=== PATIENT | female | born 1935 | race Caucasian/White ===

== ENCOUNTER 2017-08-28 08:20 | Outpatient (CLI) | payer MEDICARE, BC ==
[2017-08-28] MEDS ORDERED: Iopamidol 370 76% 100 ML VIAL ONE (09:00)
--- NOTE | 2017-08-28 14:30 | CT ---
CT OF ABDOMEN PERFORMED WITH AND WITHOUT CONTRAST ENHANCEMENT: History: Abnormal liver function test. Elevated liver enzymes. Contrast: 99 cc Isovue 370 Comparison: None. FINDINGS: Lung bases show chronic appearing interstitial lung changes with areas of airtrapping. The liver is within normal limits of size. It shows some surface nodularity. It measures 13.2 cm in s ize. The spleen is within normal limits. The pancreas region as well as gallbladder appear unremarkab le. Right and left adrenal glands and right and left kidneys are normal in size. Small hypodensities invo lving the kidneys are most likely small cysts. There is no significant periaortic or mesenteric adeno patricia. No bowel wall abnormalities. There are arthritic changes of the spine. IMPRESSION: 1. Chronic lung change. 2. Slightly nodular appearance to the surface of the liver suggesting that there is some underlying c irrhotic change. There is no evidence of any mass. POS: [facility]
== END 2017-08-28 08:21 | disposition home or self-care (01) ==
LOC: SCSCT 08:20
PROVIDERS: ATTEND Family Medicine
DX: R74.8 Abnormal levels of other serum enzymes (principal)
CPT/HCPCS: 74170; 82565

== ENCOUNTER 2017-10-23 18:20 | Observation (INO) | payer MEDICARE, BC ==
[2017-10-23 18:51] LABS: #Basophils 0.1 thou/uL (0.0-0.2); #Eosinphils 0.3 thou/uL (0.0-0.7); #Lymphocytes 1.3 thou/uL (1.20-3.40); #Monocytes 0.7 thou/uL (0.11-0.59); %Basophils 1.3 % (0.0-1.0); %Eosinophils 4.4 % (0.0-10.0); %Lymphocytes 17.6 % (21.0-51.0); %Monocytes 9.4 % (0.0-10.0); %Neutrophils 67.4 % (42.0-75.0); Hemoglobin 13.2 g/dL (12.0-16.0); Mean Corpuscular HGB CONC 33.9 g/dL (32.0-36.0); Mean Corpuscular Hemoglobin 31.3 pg (27.0-31.0); Mean Corpuscular Volume 92.3 fl (81.0-99.0); Mean Platelet Volume 6.2 fL (7.4-10.4); Platelet Count 241 thou/uL (130-400); RBC Distribution Width 10.7 % (11.5-14.5); Red Blood Cell (RBC) Count 4.22 mill/uL (4.20-5.40); White Blood Cell (WBC) Count 7.4 thou/uL (4.8-10.8)
[2017-10-23 19:02] LABS: Base Excess-Venous -0.6 mmol/L (0 (+/- 2.5)); Bicarbonate (HCO3v) 22.3 mmol/L (1.0-85.0); CO2 Tension (PvCO2) 31.5 mmHg (41.0-51.0); Calcium, Ionized 0.92 mmol/L (1.12-1.32); Hemoglobin - Calc 14.7 g/dL (12.0-18.0); O2 Tension (PvO2) 50.5 mmHg (35.0-45.0); Potassium 5.1 mmol/L (3.4-4.7); T. Carbon Dioxide 23.3 mmol/L (1.0-85.0); pH (Venous) 7.459 (7.35-7.45); vO2 Saturation-calc 87.8 % (94-98)
[2017-10-23 19:06] LABS: Anion Gap 14 mmol/L (10-20); BUN (Urea Nitrogen) 12 mg/dL (9.8-20.1); Calc. Creatinine Clearance 0 mL/min (70-130); Calcium 8.8 mg/dL (7.8-10.44); Carbon Dioxide 20 mmol/L (23-31); Chloride 101 mmol/L (98-107); Estimated GFR-MDRD 69; Glucose 138 mg/dL (83-110); Potassium 4.6 mmol/L (3.5-5.1); Sodium 130 mmol/L (136-145)
[2017-10-23 19:10] LABS: CKMB 1.2 ng/mL (0-6.6); Troponin I 0.025 ng/mL (< 0.028)
[2017-10-23] MEDS ORDERED: Nitroglycerin 2% Ointment 1 INCH/1 GM Packet ONE (20:06)
--- NOTE | 2017-10-23 20:32 | RAD ---
PORTABLE CHEST: 10/23/2017 PROVIDED CLINICAL HISTORY: Dyspnea. COMPARISON: 07/01/2016 FINDINGS: The cardiac and mediastinal silhouette are unchanged in appearance. Vascular calcification involves the aortic arch. Nonspecific prominence of the pulmonary interstitium, diffusely, is similar to the prior study. There is no focal consolidation, pleural fluid, or pneumothorax apparent. IMPRESSION: No evidence for an acute cardiopulmonary process. POS: [facility]
[2017-10-23 22:05] LABS: Troponin I 0.017 ng/mL (< 0.028)
[2017-10-23 23:12] VITALS: BMI 25.0
[2017-10-24 01:29] LABS: ALT (SGPT) 28 U/L (8-55); AST (SGOT) 34 U/L (5-34); Albumin 3.4 g/dL (3.4-4.8); Alkaline Phosphatase 106 U/L (40-150); Bilirubin, Direct 0.2 mg/dL (0.1-0.3); Bilirubin, Total 0.3 mg/dL (0.2-1.2); Protein, Total 8.7 g/dL (6.0-8.3)
[2017-10-24 01:39] LABS: Troponin I Less than 0.010 ng/mL (< 0.028)
[2017-10-24] MEDS ORDERED: Senokot 8.6 MG TAB PO PRN (04:16)
[2017-10-24] MEDS ORDERED: Calcium Carbonate 500 MG ChewTAB PO PRN (04:16)
[2017-10-24] MEDS ORDERED: Acetaminophen 325 MG TAB PO PRN (04:16)
[2017-10-24] MEDS ORDERED: Nitroglycerin 0.4 MG TAB (25 Tab Bottle) PO PRN (04:16)
--- NOTE | 2017-10-24 04:57 | HP ---
DATE OF ADMISSION: 10/23/2017 PRIMARY CARE PHYSICIAN: Iliana Madrid M.D. PRIMARY MUSIC HISTORIAN: Jimy Patel M.D. CHIEF COMPLAINT: Chest discomfort with shortness of breath of one week duration. HISTORY OF PRESENT ILLNESS: The patient is an 82-year-old female with coronary artery disease, status post stent placement, autoimmune hepatitis, hyperlipidemia, and atrial fibrillation who presented to the emergency room with shortness of breath and chest discomfort that has been ongoing for last 1 week or so. Her shortness of breath and chest discomfort got worse today for which she presented to the emergency room. The chest discomfort was substernal , 4/10, without any aggravating or relieving factor. It was associated with shortness of breath mainly on mild to moderate exertion. She also had some wheezing. No cough, palpitations, lightheadedness, dizziness or syncope reported. At times, she gets lightheaded, especially when she gets up too fast. In the emergency room, her EKG showed atrial fibrillation with heart rate of 102. Her chest x-ray was negative for infiltrate. She received DuoNebs, nitro patch with improvement in her symptoms. PAST MEDICAL HISTORY: 1. Coronary artery disease, status post stent placement and MD in the past. 2. Sjogren's syndrome. 3. Atrial fibrillation. 4. Depression. 5. Hypothyroidism. 6. Hyperlipidemia. 7. Autoimmune hepatitis. The patient is scheduled for liver biopsy next week or so. Xarelto is on hold. PAST SURGICAL HISTORY: 1. Right foot surgery. 2. Cardioversion in 2017. 3. Tonsillectomy. 4. Eye surgery. ALLERGIES: The patient is allergic to PENICILLIN and CODEINE. HOME MEDICATIONS: The patient is unable to recall any of her home medications. She is a poor historian. She stated that Xarelto is on hold for liver biopsy. She also stated that Dr. Patel held one of her medication that can cause abnormal liver function tests. SOCIAL HISTORY: The patient currently lives at home with her family. She makes her own decisions with the help of her family. She is a former smoker. She drinks alcohol socially. She is . She is retired. FAMILY HISTORY: Mother with diabetes, father with heart disease. REVIEW OF SYSTEMS: The following complete review of systems was negative, unless otherwise mentioned in the HPI or below: Constitutional: Weight loss or gain, ability to conduct usual activities. Skin: Rash, itching. Eyes: Double vision, pain. ENT/Mouth: Nose bleeding, neck stiffness, pain, tenderness. Cardiovascular: Palpitations, dyspnea on exertion, orthopnea. Respiratory: Shortness of breath, wheezing, cough, hemoptysis, fever or night sweats. Gastrointestinal: Poor appetite, abdominal pain, heartburn, nausea, vomiting, constipation, or diarrhea. Genitourinary: Urgency, frequency, dysuria, nocturia. Musculoskeletal: Pain, swelling. Neurologic/Psychiatric: Anxiety, depression. Allergy/Immunologic: Skin rash, bleeding tendency. PHYSICAL EXAMINATION: VITAL SIGNS: In the emergency room showed temperature 98.2, respirations 20, pulse rate of 116, blood pressure 131/83 with O2 saturation 97% on room air. GENERAL: An 82-year-old female in no apparent distress. Shortness of breath has improved. She is saturating 93% on room air. HEENT: Head atraumatic, normocephalic. Sclerae are anicteric. Moist mucous membrane, no oral lesion. NECK: Supple, no JVD, no carotid bruit. LUNGS: Showed scattered rhonchi. No significant wheezing or rales. Lungs were symmetrical. No significant accessory muscle use. HEART: S1, S2 present. Irregularly irregular, 2/6 systolic murmur over the aortic area. No rubs or gallops appreciated. ABDOMEN: Soft, nontender, bowel sounds present, no rebound or guarding. EXTREMITIES: No edema or calf tenderness. NEUROLOGIC: Grossly nonfocal, moves all four extremities. PSYCHIATRY: Alert, awake, oriented x3. SKIN: Warm and dry. LYMPH NODES: No palpable lymph nodes in the neck. PERIPHERAL VASCULAR: Radial pulses palpable bilaterally. MUSCULOSKELETAL: No joint swelling or tenderness. LABORATORY FINDINGS: CBC showed WBC 7.4 with hemoglobin 13.2, platelet count of 241. D-dimer was 0.55. Chemistries showed sodium of 130, potassium 4.6, chloride 101, bicarb 20, BUN 12, creatinine 0.80, glucose of 138. Troponins were normal. BNP was 107. Chest x-ray by my review was negative for infiltrate. EKG by my review showed atrial fibrillation with heart rate of 102. IMPRESSION: 1. Shortness of breath with chest discomfort of unclear etiology. Rule out acute coronary syndrome. 2. Abnormal D-dimer. Patient is already on Xarelto. It is unclear when she discontinued Xarelto. 3. Chronic atrial fibrillation. Per patient report, anticoagulation is currently on hold due to schedule liver biopsy. She is not able to recall whether she is still on flecainide. 4. Hyperlipidemia. 5. Hypothyroidism. 6. Autoimmune hepatitis, followed by Dr. Mckinley as well as Rheumatology, Dr. Nj. 7. Coronary artery disease, status post myocardial infarction with stent placement. 8. Depression without any suicidal ideation. 9. Chronic kidney disease stage 2. 10. Chronic hyponatremia. PLAN: The patient will be monitored in the telemetry unit as observation. Cardiology will be consulted. Serial troponins are negative so far. We will resume home medications once confirmed. We will resume low-dose aspirin which she takes on a daily basis per patient report. We will check orthostatic vitals. We will assess her for home oxygen. We will also add p.r.n. nebulizer treatment. The patient will be kept n.p.o. MTDD
[2017-10-24] MEDS ORDERED: Sodium Chloride 0.9% 1,000 ML IV SCH (07:00)
[2017-10-24 07:22] LABS: Anion Gap 8 mmol/L (10-20); BUN (Urea Nitrogen) 10 mg/dL (9.8-20.1); Calc. Creatinine Clearance 64 mL/min (70-130); Calcium 8.8 mg/dL (7.8-10.44); Carbon Dioxide 26 mmol/L (23-31); Chloride 103 mmol/L (98-107); Estimated GFR-MDRD 75; Glucose 118 mg/dL (83-110); Magnesium 1.9 mg/dL (1.6-2.6); Potassium 3.8 mmol/L (3.5-5.1); Sodium 133 mmol/L (136-145)
[2017-10-24] MEDS ORDERED: Aspirin 81 mg Enteric Coated Tablet PO SCH (09:00)
[2017-10-24] MEDS ORDERED: Furosemide 20 MG/2 ML VIAL SLOW IVP SCH (12:00)
--- NOTE | 2017-10-24 13:11 | CON ---
DATE OF CONSULTATION: 10/24/2017 REASON FOR CONSULTATION: Chest pain and shortness of breath. HISTORY OF PRESENT ILLNESS: Ms. Lacy is a very pleasant 82-year-old white female very well known to myself who comes to the hospital for lightheadedness and shortness of breath. She has a history of coronary artery disease. She had a stent placed in [facility] in [place] in 2005. She present ed to [facility] about 6 months ago with chest pain. She had a heart catheterization which showed paten t stent and just mild coronary artery disease. She started seeing me a little bit before that for an episode of atrial fibrillation. She was found to have a new diagnosis of this. She was started on Eliquis and flecainide. She underwent ARIAN cardioversion, which successfully converted her to sinus b radycardia; however, eventually she went back into atrial fibrillation, so the flecainide was stopped . She was kept on Xarelto instead of Eliquis since she had a reaction to the Eliquis, allergic react ion and she has done well since. She has been rate controlled without issues. She stated that she w as at home 2 days ago and stood up very quickly, felt lightheaded, so she thought this was related to just her getting up too quickly, so she decided she was not going to do that anymore. She also noti german that she started to get a little more short of breath. She would get midsternal chest pain which she would take a deep breath and she will start coughing. Otherwise, she states that she feels bett er now. The only thing we have done for her was given her nebs. She is not aware of being diagnosed with asthma, but she does feel an improvement after nebs were given. Currently, she is chest pain f ree. She continues to just admit for chest pain when she takes deep breath and actually when I asked her to take deep breath, she just starts coughing. She also has a scheduled liver biopsy next week as she is being evaluated for autoimmune hepatitis. This was all in the setting of her LFTs started to go up recently, so we stopped the statin drug, not because LFTs were too high, but because they we re up trending and we did not want these to be part of the mix in this setting. She has not had them for at least last 2 months and her LFTs are back to normal. PAST MEDICAL HISTORY: 1. Coronary artery disease, status post stent placement in 2005. 2. Sjogren's syndrome. 3. Atrial fibrillation, chronic, rate controlled. 4. Depression. 5. Hypothyroidism. 6. Hyperlipidemia. 7. Autoimmune hepatitis, being worked up. PAST SURGICAL HISTORY: 1. Right foot surgery. 2. Cardioversion, last year. 3. Tonsillectomy. 4. Eye surgery. 5. Stent placement as well. ALLERGIES: CODEINE and PENICILLIN. OUTPATIENT MEDICATIONS: 1. Atorvastatin 20 mg every day. 2. Aspirin 81 a day. 3. Levothyroxine 100 mcg a day. 4. Xarelto 20 mg at bedtime. 5. Toprol-XL 12.5 mg a day. 6. Lasix 20 mg a day, Lasix was discontinued on last office visit in August. SOCIAL HISTORY: No alcohol, tobacco or drugs. She is . FAMILY HISTORY: Noncontributory. REVIEW OF SYSTEMS: A 12 point review of systems was done and is all negative unless stated in the hi story of present illness. PHYSICAL EXAMINATION: VITAL SIGNS: Temperature 98.0, pulse 87, respiratory rate 16, satting 92% on room air, blood pressur e 129/84. GENERAL: Awake, alert, oriented x3, in no distress. HEENT: Normocephalic, atraumatic. NECK: Supple. LUNGS: Clear. CARDIOVASCULAR: S1, S2, no S3 or S4. Irregularly irregular heart rhythm in 70s. LUNGS: Have coarse breath sounds with mild expiratory wheezes. ABDOMEN: Soft with positive bowel sounds. EXTREMITIES: No edema. SKIN: Warm and dry. LABORATORY DATA: Laboratory work was reviewed. Sodium 133, potassium 3.8, chloride 103, carbon diox cedric 26, anion gap of 8, BUN of 10, creatinine 0.7, GFR of 75, glucose of 118, calcium 8.8, magnesium 1.9. LFTs were normal. Total bilirubin was normal. Troponin has been negative x3, albumin of 3.4. CBC was unremarkable. Coags; D-dimer was a little bit elevated at 0.55. ASSESSMENT AND PLAN: 1. Chest pain: Only has a little bit of discomfort when she takes a deep breath. We will get an ec hocardiogram to make sure her pericardial sac is intact. I doubt that this is related to her heart i n regards to an ACS that she has completed negative enzymes since she had an unremarkable heart joshua terization about 6-7 months ago. If her echocardiogram is unremarkable, she can be discharged home a nytime from the cardiac perspective. 2. Increased interstitial markings on chest x-ray. She will probably need an outpatient evaluation by Pulmonary. We will set this up as an outpatient. 3. Shortness of breath: We will give her 1 dose of IV Lasix since she may have a little bit of cavanaugh tolic heart failure; however, I do not think this is the biggest issue. Thank you for letting us to participate in the care of your patient. We will follow.
--- NOTE | 2017-10-24 15:00 | PDOC.PN ---
- Subjective Encounter Start Date: 10/24/17 Encounter Start Time: 14:58 Ms. Lacy was seen today in follow-up. She says she is breathing better today. and the pain she had is resolving. - Objective Resuscitation Status: Resuscitation Status FULL:Full Resuscitation MAR Reviewed: Yes Vital Signs & Weight: Vital Signs (12 hours) Temp Pulse Resp BP BP BP BP 10/24/17 13:32 85 14 10/24/17 11:42 98.0 F 87 16 121/84 10/24/17 09:34 81 16 10/24/17 07:43 98.5 F 86 14 10/24/17 07:19 98.4 F 89 16 123/66 139/60 110/58 L 10/24/17 05:55 10/24/17 05:53 86 14 10/24/17 04:10 98.5 F 111 H 18 155/104 H Pulse Ox 10/24/17 13:32 95 10/24/17 11:42 92 L 10/24/17 09:34 96 10/24/17 07:43 10/24/17 07:19 94 L 10/24/17 05:55 98 10/24/17 05:53 97 10/24/17 04:10 95 Weight Weight 150 lb 1.6 oz I&O: 10/23/17 10/24/17 10/25/17 06:59 06:59 06:59 Intake Total 720 585 Output Total 1300 400 Balance -580 185 Result Diagrams: 10/23/17 18:45 10/24/17 06:40 Phys Exam - Physical Examination HEENT: PERRLA Respiratory: no wheezing, no rales, no rhonchi, clear to auscultation bilateral Cardiovascular: RRR, no significant murmur, no rub Gastrointestinal: soft, non-tender, no distention, positive bowel sounds Musculoskeletal: no edema Dx/Plan (1) Chest pain Code(s): R07.9 - CHEST PAIN, UNSPECIFIED Status: Acute (2) Atrial fibrillation Code(s): I48.91 - UNSPECIFIED ATRIAL FIBRILLATION Status: Acute (3) Coronary artery disease Code(s): I25.10 - ATHSCL HEART DISEASE OF [place] CORONARY ARTERY W/O ANG PCTRS Status: Acute - Plan * Chest pain- she has been evaluated by Dr. Patel, and he is recommending an Echo * AFIB- her rate is controlled * If her Echo is negative, than likely home this afternoon.
[2017-10-24 16:16] VITALS: BP 104/59; TEMP 98.6
--- NOTE | 2017-10-24 20:31 | EKG ---
Test Reason : Blood Pressure : / mmHG Vent. Rate : 094 BPM Atrial Rate : 113 BPM P-R Int : 000 ms QRS Dur : 082 ms QT Int : 382 ms P-R-T Axes : 000 015 081 degrees QTc Int : 477 ms Atrial fibrillation with premature ventricular or aberrantly conducted complexes Abnormal ECG When compared with ECG of 01-JUL-2016 01:33, No significant change was found Confirmed by YESSI CALHOUN, SYudelka ([id number]) on 10/24/2017 8:31:27 PM Referred By: CARMELA Confirmed By:DR. Jony DICKSON MD
--- NOTE | 2017-10-25 03:42 | DIS ---
DATE OF ADMISSION: 10/25/2017 DATE OF DISCHARGE: 10/25/2017 PRIMARY CARE PHYSICIAN: Dr. Iliana Madrid. DISCHARGE DISPOSITION: Home. PRIMARY DISCHARGE DIAGNOSES: 1. Chest pain, probable noncardiac etiology. 2. History of coronary artery disease. 3. Sjogren syndrome. 4. Permanent atrial fibrillation. 5. Depression. 6. Hypothyroidism. 7. Hyperlipidemia. 8. History of autoimmune hepatitis. DISCHARGE MEDICATIONS: These are the same as her admission medications and include Xarelto 20 mg at bedtime, Toprol-XL 12.5 mg daily, levothyroxine 100 mcg p.o. daily, Lasix 20 mg daily, flecainide 50 mg daily, donepezil 5 mg daily, atorvastatin 20 mg at bedtime, and aspirin 81 mg a day. PROCEDURES DONE DURING ADMISSION: The patient had an echocardiogram and the ejection fraction was vi sualized at 60%-65%. There was no evidence of any pericardial effusion, left ventricular and right v entricular size and function were normal. CODE STATUS: FULL CODE. ALLERGIES: PENICILLINS. HOSPITAL COURSE: Ms. Lacy is a pleasant 82-year-old female who presented to the emergency room with complaints of chest discomfort and shortness of breath. She had been having these symptoms off and on for about a week. She did admit that the pain seemed to be worse with inspiration. Given her his tory of coronary artery disease, she was placed in observation and ruled out. Her dna analyst, Dr. Patel was consulted. He noted that the patient had a recent cardiac catheterization in April of last year, which was negative for any flow limiting disease. He suspected that her symptoms could be more viral in origin and order an echocardiogram to rule out any significant pericardial effusion an d this was negative. Her symptoms are improving by the following day and given that there were no si gnificant findings on the echo. She is being discharged home. We will continue her same medications and we will have close outpatient followup.
== END 2017-10-24 18:43 | disposition home or self-care (01) ==
LOC: SCSER 18:20 → 2SW 20:20
PROVIDERS: ADMIT Internal Medicine Infectious Disease; ATTEND Internal Medicine Infectious Disease
DX: R07.89 Other chest pain (principal); I25.10 Atherosclerotic heart disease of native coronary artery without angina pectoris; Z95.5 Presence of coronary angioplasty implant and graft; E78.5 Hyperlipidemia, unspecified; K75.4 Autoimmune hepatitis; I25.2 Old myocardial infarction; F32.9 Major depressive disorder, single episode, unspecified; E03.9 Hypothyroidism, unspecified; M35.00 Sjogren syndrome, unspecified; I48.2 Chronic atrial fibrillation; N18.2 Chronic kidney disease, stage 2 (mild); Z87.891 Personal history of nicotine dependence; Z88.0 Allergy status to penicillin; Z88.5 Allergy status to narcotic agent; Z91.018 Allergy to other foods; Z79.01 Long term (current) use of anticoagulants; Z79.82 Long term (current) use of aspirin; Z79.899 Other long term (current) drug therapy
CPT/HCPCS: 71045; 80048 ×2; 80076; 82330; 82435; 82553; 82803; 83735; 83880; 84132; 84295; 84484 ×3; 85014; 85025; 85379; 93005 ×2; 93306; 94640 ×2; 94760; 96361; 96374; 97139; 99285; G0378; 36415; 93010; J1940; J7620

== ENCOUNTER 2017-10-30 08:00 | Day surgery (SDC) | payer MEDICARE, BC ==
[2017-10-29 15:03] VITALS: BMI 24.1
[2017-10-30 08:28] LABS: INR-International Normal Ratio 1.1; PTT 31.2 SEC (22.9-36.1); Prothrombin Time 14.3 SEC (12.0-14.7)
[2017-10-30] MEDS ORDERED: Fentanyl 100 MCG/2 ML VIAL ONE (09:05)
[2017-10-30] MEDS ORDERED: Midazolam HCl 2 mg/2 ml Vial ONE (09:05)
[2017-10-30] MEDS ORDERED: Sodium Bicarbonate 2.5 MEQ/5 ML VIAL ONE (09:06)
[2017-10-30 09:59] VITALS: BP 127/91; TEMP 97
--- NOTE | 2017-10-30 12:09 | ULT ---
ULTRASOUND GUIDED LIVER BIOPSY: HISTORY: Abnormal liver function tests. COMPARISON: CT abdomen from August 2017. FINDINGS: The patient was brought to the ultrasound suite. All questions were answered. The patient's upper abdomen was prepped and draped in the normal sterile fashion. Informed consent w as obtained. A time out was performed. Using ultrasound guidance, a total of 6 mL of Lidocaine was instilled into the superficial and deep s oft tissues. A small dermatotomy was made, after adequate anesthesia. Using an 18 gauge BioPince ne edle and a 17 gauge introducer, a total of two 22 mm cores were obtained. The patient tolerated the procedure well. No complications. IMPRESSION: Technically successful ultrasound guided liver biopsy. POS: [facility]
== END 2017-10-30 12:00 | disposition home or self-care (01) ==
LOC: ULT 08:00
PROVIDERS: ATTEND Internal Medicine
PROC: 0FB23ZX Excision of Left Lobe Liver, Percutaneous Approach, Diagnostic (ICD-10-PCS; principal; 2017-10-30)
DX: K73.9 Chronic hepatitis, unspecified (principal); I48.91 Unspecified atrial fibrillation; I50.9 Heart failure, unspecified; I25.2 Old myocardial infarction; E07.9 Disorder of thyroid, unspecified; Z88.0 Allergy status to penicillin; Z79.01 Long term (current) use of anticoagulants; Z79.899 Other long term (current) drug therapy; Z79.82 Long term (current) use of aspirin
CPT/HCPCS: 36415; 47000; 76942; 85610; 85730; 88307; J2250; J3010

== ENCOUNTER 2019-05-30 14:33 | Inpatient (IN) | payer MEDICARE, BC ==
--- NOTE | 2019-05-30 15:10 | RAD ---
EXAM: Chest 2 views: HISTORY: Shortness of breath COMPARISON: 09/07/2016 FINDINGS: There is a normal-sized cardiomediastinal silhouette. Atherosclerotic calcifications are seen in the aorta. Increased interstitial markings are seen. There is no evidence of consolidation, mass, or pleural effusion. The bones are unremarkable. IMPRESSION: No evidence of acute cardiopulmonary disease
[2019-05-30 15:59] LABS: #Eosinphils 0.2 thou/uL (0.0-0.7); #Lymphocytes 1.5 thou/uL (1.20-3.40); #Monocytes 0.6 thou/uL (0.11-0.59); #Neutrophils 4.2 thou/uL (1.40-6.50); %Basophils 0.5 % (0.0-1.0); %Eosinophils 3.6 % (0.0-10.0); %Lymphocytes 22.4 % (21.0-51.0); %Monocytes 9.3 % (0.0-10.0); %Neutrophils 64.3 % (42.0-75.0); Hemoglobin 6.4 g/dL (12.0-16.0); Mean Corpuscular HGB CONC 31.5 g/dL (32.0-36.0); Mean Corpuscular Hemoglobin 23.8 pg (27.0-31.0); Mean Corpuscular Volume 75.6 fL (78.0-98.0); Mean Platelet Volume 7.3 fL (7.4-10.4); Platelet Count 305 thou/uL (130-400); RBC Distribution Width 17.1 % (11.5-14.5); Red Blood Cell (RBC) Count 2.66 mill/uL (4.20-5.40); White Blood Cell (WBC) Count 6.5 thou/uL (4.8-10.8)
[2019-05-30 16:18] LABS: ALT (SGPT) Less than 7 U/L (8-55); AST (SGOT) 12 U/L (5-34); Albumin 3.9 g/dL (3.4-4.8); Alkaline Phosphatase 133 U/L (40-110); Anion Gap 12 mmol/L (10-20); BUN (Urea Nitrogen) 10 mg/dL (9.8-20.1); Bilirubin, Total 0.4 mg/dL (0.2-1.2); Calc. Creatinine Clearance 0 mL/min (70-130); Calcium 9.1 mg/dL (7.8-10.44); Carbon Dioxide 24 mmol/L (23-31); Chloride 104 mmol/L (98-107); Estimated GFR-MDRD 66; Globulin 3.5 g/dL (2.4-3.5); Glucose 116 mg/dL (83-110); Potassium 3.7 mmol/L (3.5-5.1); Protein, Total 7.4 g/dL (6.0-8.3); Sodium 136 mmol/L (136-145)
[2019-05-30] MEDS ORDERED: Pantoprazole 40 MG VIAL ONE (16:26)
--- NOTE | 2019-05-30 18:21 | PDOC.HHP ---
Hospitalist HPI - History of Present Illness SOB, Anemia History of Present Illness: Ms. Lacy is an 84 y/o lady with PMH of afib on anticoagulation, CAD s/p stent over 20 years ago, who presents to the ED today for shortness of breath and fatigue. Her Hb was reportedly 6.4 in the ED. She states for the past month has been progressively more short of breath and faigued. States that especially in the past week has started feeling more tired. She lives in an assisted living facility and reportedly has been unable to walk to the cafeteria for meals. She has not noticed in black coloration in her stools. Reports no history of bleeding. She is on Xarelto for atrial fibrillation. She denies any other bleeding symptoms including epistaxis or hematuria. Denies chest pain. Hospitalist ROS - Review of Systems Constitutional: reports: weakness. denies: fever, chills, sweats, malaise, other Eyes: denies: pain, vision change, conjunctivae inflammation, eyelid inflammation, redness, other ENT: denies: ear pain, ear discharge, nose pain, nose discharge, nose congestion , mouth pain, mouth swelling, throat pain, throat swelling, other Respiratory: denies: cough, dry, shortness of breath, hemoptysis, SOB with excertion, pleuritic pain, sputum, wheezing, other Cardiovascular: denies: chest pain, palpitations, orthopnea, paroxysmal noc. dyspnea, edema, light headedness, other Gastrointestinal: denies: nausea, vomiting, abdominal pain, diarrhea, constipation, melena, hematochezia, other Genitourinary: denies: dysuria, frequency, incontinence, hematuria, retention, other Musculoskeletal: denies: neck pain, shoulder pain, arm pain, back pain, hand pain, leg pain, foot pain, other Skin: denies: rash, lesions, anish, bruising, other Neurological: denies: weakness, numbness, incoordination, change in speech, confusion, seizures, other - Medication Medications: Xarelto Sat May 30, 2019 14:46 TUNDE Lacy Morgan TABLET : Strength - 10 mg : ORAL Patient Dose: 20 mg Oral once a day. levothyroxine oral Sat May 30, 2019 14:46 TUNDE Lacy Morgan TABLET : Strength - 100 mcg : ORAL Patient Dose: 112 mcg Oral once a day. Aspir-81 Sat May 30, 2019 14:48 TUNDE Lacy Morgan TABLET, DELAYED RELEASE (ENTERIC COATED) : Strength - 81 mg : ORAL Patient Dose: 1 tab(s) Oral once a day. Lasix oral Sat May 30, 2019 14:48 TUNDE Lacy Morgan TABLET : Strength - 20 mg : ORAL Patient Dose: 20 mg Oral once a day (in the morning). azaTHIOprine Sat May 30, 2019 14:48 TUNDE Lacy Morgan tablet : Strength - 50 mg : ORAL Patient Dose: 50 mg Oral once a day. metoprolol succinate Sat May 30, 2019 14:49 TUNDE Lacy Morgan tablet extended release 24 hr : Strength - 25 mg : ORAL Patient Dose: 25 mg Oral once a day. Hospitalist History - Past Medical History Cardiac: reports: AFIB, CAD Pulmonary: reports: no pertinent history [employer]: reports: no pertinent history Gastrointestinal: reports: no pertinent history Heme/Onc: reports: no pertinent history Hepatobiliary: reports: no pertinent history Psych: reports: no pertinent history Musculoskeletal: reports: no pertinent history Rheumatologic: reports: no pertinent history Infectious Disease: reports: no pertinent history ENT: reports: no pertinent history Renal/: reports: no pertinent history Endocrine: reports: no pertinent history Dermatology: reports: no pertinent history - Past Surgical History Past Surgical History: reports: Other (Stent placement for CAD over 20 years ago ) - Family History Family History: reports: no pertinent history - Social History Smoking Status: Never smoker Alcohol: reports: None Drugs: reports: none Living Situation: Other (Assisted living facility) Activity level: independent ambulation - Exam General Appearance: NAD, awake alert, ill appearing General - other findings: pale in appearance Eye: PERRL, anicteric sclera Eye - other findings: Pallor noted ENT: normocephalic atraumatic, no oropharyngeal lesions, moist mucosa Neck: supple, symmetric, no JVD, no thyromegaly, no lymphadenopathy, no carotid bruit Heart: RRR, no murmur, no gallops, no rubs, normal peripheral pulses Respiratory: CTAB, no wheezes, no rales, no ronchi, normal chest expansion, no tachypnea, normal percussion Gastrointestinal: soft, non-tender, non-distended, normal bowel sounds, no palpable masses, no hepatomegaly, no splenomegaly, no bruit Extremities: no cyanosis, no clubbing, no edema Skin: normal turgor, no lesions, no rashes Neurological: cranial nerve grossly intact, normal sensation to touch, no weakness, no focal deficits, no new deficit Musculoskeletal: normal tone, normal strength, no muscle wasting Psychiatric: normal affect, normal behavior, A&O x 3 Hospitalist Results - Labs Result Diagrams: 05/30/19 15:38 05/30/19 15:38 Lab results: WBC 6.5 thou/uL (4.8-10.8) 05/30/19 15:38 Hgb 6.4 g/dL (12.0-16.0) L 05/30/19 15:38 Hct 20.2 % (36.0-47.0) L 05/30/19 15:38 MCV 75.6 fL (78.0-98.0) L 05/30/19 15:38 Plt Count 305 thou/uL (130-400) 05/30/19 15:38 Neutrophils % 64.3 % (42.0-75.0) 05/30/19 15:38 Sodium 136 mmol/L (136-145) 05/30/19 15:38 Potassium 3.7 mmol/L (3.5-5.1) 05/30/19 15:38 Chloride 104 mmol/L (98-107) 05/30/19 15:38 Carbon Dioxide 24 mmol/L (23-31) 05/30/19 15:38 BUN 10 mg/dL (9.8-20.1) 05/30/19 15:38 Creatinine 0.83 mg/dL (0.6-1.1) 05/30/19 15:38 Glucose 116 mg/dL (83-110) H 05/30/19 15:38 Calcium 9.1 mg/dL (7.8-10.44) 05/30/19 15:38 Total Bilirubin 0.4 mg/dL (0.2-1.2) 05/30/19 15:38 AST 12 U/L (5-34) 05/30/19 15:38 ALT Less than 7 U/L (8-55) L 05/30/19 15:38 Alkaline Phosphatase 133 U/L (40-110) H 05/30/19 15:38 Troponin I Less than 0.010 ng/mL (< 0.028) 05/30/19 15:38 B-Natriuretic Peptide 185.1 pg/mL (0-100) H 05/30/19 15:38 Serum Total Protein 7.4 g/dL (6.0-8.3) 05/30/19 15:38 Albumin 3.9 g/dL (3.4-4.8) 05/30/19 15:38 Additional comment: VITAL SIGNS Sat May 30, 2019 16:45 TUNDE Goldman, [facility] BP: 114/76, Pulse: 99, Resp: 22, Temp: 98.4 (Oral), Pain: 0, O2 sat: 100 on (2L Oxygen), Time: 05/30/2019 16:45. Hospitalist H&P A/P - Problem (1) Symptomatic anemia Code(s): D64.9 - ANEMIA, UNSPECIFIED Status: Acute (2) Atrial fibrillation Code(s): I48.91 - UNSPECIFIED ATRIAL FIBRILLATION Status: Acute (3) Coronary artery disease Code(s): I25.10 - ATHSCL HEART DISEASE OF [place] CORONARY ARTERY W/O ANG PCTRS Status: Chronic (4) Chronic anticoagulation Code(s): Z79.01 - [facility] (CURRENT) USE OF ANTICOAGULANTS Status: Chronic - Plan Plan: Admit for observation Transfuse 2uPRBC. Monitor H & H after transfusion and in the AM Consult placed for GI, anemia microcytic, vitals compensated, likely slow occult GI bleeding until proven otherwise Protonix 40mg IV BID Hold Xarelto for now Clear liquid diet Medication to be reconciled in the AM DVt Prophylaxis: SCDs Code status: Full as discussed with patient ACP: Wants treatment, lives in assisted living, quite independent, daughter is surrogate decision maker provided she is unable to make decisions Disposition: Admit for investigation of anemia. Coordinate with GI.
[2019-05-30] MEDS ORDERED: Sodium Chloride 0.9% (PF) 10 ML VIAL FS PRN (18:38)
[2019-05-30 18:39] VITALS: BMI 26.0
[2019-05-31] MEDS: Pantoprazole 40 MG VIAL IVP SCH ×3 (00:08→20:51)
[2019-05-31 05:32] LABS: #Basophils 0.1 thou/uL (0.0-0.2); #Eosinphils 0.2 thou/uL (0.0-0.7); #Lymphocytes 1.9 thou/uL (1.20-3.40); #Monocytes 0.7 thou/uL (0.11-0.59); #Neutrophils 4.8 thou/uL (1.40-6.50); %Basophils 0.7 % (0.0-1.0); %Lymphocytes 25.3 % (21.0-51.0); %Monocytes 8.5 % (0.0-10.0); %Neutrophils 62.6 % (42.0-75.0); Hemoglobin 8.7 g/dL (12.0-16.0); Mean Corpuscular Hemoglobin 26.3 pg (27.0-31.0); Mean Corpuscular Volume 82.2 fL (78.0-98.0); Mean Platelet Volume 7.4 fL (7.4-10.4); Platelet Count 287 thou/uL (130-400); RBC Distribution Width 19.6 % (11.5-14.5); White Blood Cell (WBC) Count 7.7 thou/uL (4.8-10.8)
[2019-05-31] MEDS ORDERED: Prevnar 13-Val Conj/PF 0.5 ML SYRINGE IM ONE (09:00)
[2019-05-31 10:37] LABS: Iron 215 ug/dL (50-170); Iron Binding Capacity, Total 443 mcg/dL (265-497)
--- NOTE | 2019-05-31 14:34 | PDOC.HOSPP ---
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 Found to have Hb of 6.4 which is markedly low relative to 13.2 in november 2018. Transfused 2 PRBC with improvement. Admitted to having iron deficiency but denied hematemesis, melena or hematochezia - Objective Vital Signs & Weight: Vital Signs (12 hours) Temp Pulse Resp BP BP Pulse Ox 05/31/19 11:45 98.7 F 85 16 132/75 95 05/31/19 07:47 98.8 F 80 20 125/61 96 05/31/19 04:04 98.3 F 98 20 132/81 97 Weight Weight 156 lb 6.4 oz I&O: 05/30/19 05/31/19 06/01/19 06:59 06:59 06:59 Intake Total 1430 250 Output Total 900 Balance 1430 -650 Result Diagrams: 05/31/19 05:01 05/30/19 15:38 Hospitalist ROS - Medication Medications: Active Medications Generic Name Dose Route Start Last Admin Trade Name Freq PRN Reason Stop Dose Admin Pantoprazole Sodium 40 mg 05/30/19 21:00 05/31/19 09:57 Protonix IVP 40 mg BID ANNETTE Administration - Exam General Appearance: awake alert Eye: anicteric sclera ENT: normocephalic atraumatic, moist mucosa Neck: symmetric, no JVD Heart: irregular Respiratory: no wheezes, no ronchi, normal chest expansion, no tachypnea Gastrointestinal: soft, non-tender, non-distended, normal bowel sounds Extremities: no edema Neurological: cranial nerve grossly intact, no focal deficits Psychiatric: A&O x 3 Hosp A/P (1) Symptomatic anemia Code(s): D64.9 - ANEMIA, UNSPECIFIED Status: Acute (2) GI bleeding Code(s): K92.2 - GASTROINTESTINAL HEMORRHAGE, UNSPECIFIED Status: Suspected (3) Microcytic anemia Code(s): D50.9 - IRON DEFICIENCY ANEMIA, UNSPECIFIED Status: Acute (4) Autoimmune hepatitis Code(s): K75.4 - AUTOIMMUNE HEPATITIS Status: Acute (5) Hypothyroidism Code(s): E03.9 - HYPOTHYROIDISM, UNSPECIFIED Status: Acute (6) Atrial fibrillation Code(s): I48.91 - UNSPECIFIED ATRIAL FIBRILLATION Status: Acute (7) Chronic anticoagulation Code(s): Z79.01 - [employer]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 Continue PPI. hold ASA and xarelto Awaiting GI evaluation SCD for DVT prophylaxis Continue levothyroxine
[2019-06-01 08:14] LABS: Hemoglobin 8.5 g/dL (12.0-16.0)
[2019-06-01] MEDS: Pantoprazole 40 MG VIAL IVP SCH ×2 (09:15→22:18)
--- NOTE | 2019-06-01 16:13 | PDOC.HOSPP ---
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 Found to have Hb of 6.4 which is markedly low relative to 13.2 in november 2018. Transfused 2 PRBC with improvement. Admitted to known history of iron deficiency but denied hematemesis, melena or hematochezia. No new problem. - Objective Vital Signs & Weight: Vital Signs (12 hours) Temp Pulse Resp BP Pulse Ox 06/01/19 11:21 98.3 F 68 15 113/58 L 97 06/01/19 07:40 99.4 F 80 18 123/65 94 L Weight Weight 155 lb 9.6 oz I&O: 05/31/19 06/01/19 06/02/19 06:59 06:59 06:59 Intake Total 1430 1950 1030 Output Total 3700 Balance 1430 -1750 1030 Result Diagrams: 06/01/19 07:59 05/30/19 15:38 Hospitalist ROS - Medication Medications: Active Medications Generic Name Dose Route Start Last Admin Trade Name Freq PRN Reason Stop Dose Admin Pantoprazole Sodium 40 mg 05/30/19 21:00 06/01/19 09:15 Protonix IVP 40 mg BID ANNETTE Administration Sodium Chloride 10 ml 05/30/19 18:02 05/31/19 20:51 Flush - Normal Saline IVF 10 ml PRN PRN Administration Saline Flush - Exam General Appearance: awake alert Eye: anicteric sclera ENT: normocephalic atraumatic Neck: symmetric, no JVD Heart: RRR Respiratory: no wheezes, no rales, no ronchi, normal chest expansion Gastrointestinal: soft, non-tender, non-distended, normal bowel sounds Extremities: no cyanosis, no edema Neurological: cranial nerve grossly intact, no focal deficits Neurological - other findings: memory lapses noted Psychiatric: A&O x 3 Hosp A/P (1) Symptomatic anemia Code(s): D64.9 - ANEMIA, UNSPECIFIED Status: Acute (2) GI bleeding Code(s): K92.2 - GASTROINTESTINAL HEMORRHAGE, UNSPECIFIED Status: Suspected (3) Microcytic anemia Code(s): D50.9 - IRON DEFICIENCY ANEMIA, UNSPECIFIED Status: Acute (4) Autoimmune hepatitis Code(s): K75.4 - AUTOIMMUNE HEPATITIS Status: Acute (5) Hypothyroidism Code(s): E03.9 - HYPOTHYROIDISM, UNSPECIFIED Status: Acute (6) Atrial fibrillation Code(s): I48.91 - UNSPECIFIED ATRIAL FIBRILLATION Status: Acute (7) Chronic anticoagulation Code(s): Z79.01 - 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 Continue to hold ASA and xarelto Start IV iron therapy SCD for DVT prophylaxis Continue levothyroxine endoscopic evaluation planning in progress
[2019-06-01] MEDS ORDERED: Iron, Sodium Ferric Gluconate 250 MG in Sodium Chloride 0.9% 100 ML IVPB SCH (16:30)
[2019-06-01] MEDS ORDERED: GoLYTELY 4,000 ml Bottle PO SCH (17:00)
[2019-06-02 05:25] LABS: Hemoglobin 9.3 g/dL (12.0-16.0)
[2019-06-02 05:46] LABS: Albumin 3.8 g/dL (3.4-4.8); Anion Gap 14 mmol/L (10-20); BUN (Urea Nitrogen) 5 mg/dL (9.8-20.1); BUN/Creatinine Ratio 5.81; Calc. Creatinine Clearance 55 mL/min (70-130); Carbon Dioxide 23 mmol/L (23-31); Chloride 102 mmol/L (98-107); Estimated GFR-MDRD 63; Glucose 110 mg/dL (83-110); Phosphorus 2.3 mg/dL (2.3-4.7); Potassium 3.4 mmol/L (3.5-5.1); Sodium 136 mmol/L (136-145)
[2019-06-02] MEDS ORDERED: Iron, Sodium Ferric Gluconate 250 MG in Sodium Chloride 0.9% 100 ML IVPB SCH (09:00)
[2019-06-02] MEDS ORDERED: PROPOFOL 200 MG/20 ML VIAL ONE (10:53)
[2019-06-02] MEDS ORDERED: ePHEDrine/0.9% NaCl/PF SYRINGE 50 mg/10 ml ONE (10:53)
[2019-06-02] MEDS ORDERED: Lidocaine 1% PF 5 ML VIAL ONE (10:53)
[2019-06-02] MEDS: Pantoprazole 40 MG VIAL IVP SCH (13:02)
[2019-06-02] MEDS ORDERED: Potassium Chloride 20 MEQ TAB PO SCH (14:45)
--- NOTE | 2019-06-02 15:01 | PDOC.HOSPP ---
- Subjective Encounter Date: 06/02/19 Encounter Time: 14:59 Subjective: Patient complaining about food being "terrible" and that she has had to force herself to eat today. Otherwise denies any complaints. - Objective Vital Signs & Weight: Vital Signs (12 hours) Temp Pulse Resp BP Pulse Ox 06/02/19 12:50 97.5 F L 89 18 121/58 L 96 06/02/19 07:49 99.1 F 82 20 122/60 95 06/02/19 04:00 90 18 126/65 98 Weight Weight 155 lb 9.6 oz I&O: 06/01/19 06/02/19 06/03/19 06:59 06:59 06:59 Intake Total 1950 2630 Output Total 3700 900 Balance -1750 1730 Result Diagrams: 06/02/19 04:51 06/02/19 04:51 Hospitalist ROS - Review of Systems Constitutional: denies: fever, chills, sweats, weakness, malaise, other Eyes: denies: pain, vision change, conjunctivae inflammation, eyelid inflammation, redness, other ENT: reports: mouth pain (due to sjogrens and eating spicy soup with lunch) Respiratory: denies: cough, dry, shortness of breath, hemoptysis, SOB with excertion, pleuritic pain, sputum, wheezing, other Cardiovascular: denies: chest pain, palpitations, orthopnea, paroxysmal noc. dyspnea, edema, light headedness, other Gastrointestinal: denies: nausea, vomiting, abdominal pain, diarrhea, constipation, melena, hematochezia, other Genitourinary: denies: dysuria, frequency, incontinence, hematuria, retention, other Musculoskeletal: denies: neck pain, shoulder pain, arm pain, back pain, hand pain, leg pain, foot pain, other Skin: denies: rash, lesions, anish, bruising, other Neurological: denies: weakness, numbness, incoordination, change in speech, confusion, seizures, other - Medication Medications: Active Medications Generic Name Dose Route Start Last Admin Trade Name Freq PRN Reason Stop Dose Admin Ferric Sodium Gluconate 120 mls @ 60 mls/hr 06/02/19 09:00 06/02/19 13:02 Complex 250 mg/ Sodium IVPB 06/04/19 09:01 120 mls Chloride DAILY ANNETTE Administration Pantoprazole Sodium 40 mg 05/30/19 21:00 06/02/19 13:02 Protonix IVP 40 mg BID ANNETTE Administration Potassium Chloride 40 meq 06/02/19 14:45 06/02/19 14:47 K-Dur PO 06/02/19 16:45 40 meq NOW ANNETTE Administration Sodium Chloride 10 ml 05/30/19 18:02 05/31/19 20:51 Flush - Normal Saline IVF 10 ml PRN PRN Administration Saline Flush
--- NOTE | 2019-06-02 15:12 | OP ---
DATE OF PROCEDURE: 06/02/2019 PROCEDURE PERFORMED: Esophagogastroduodenoscopy. PREOPERATIVE DIAGNOSES: Acute blood loss, gastrointestinal bleeding, anemia due to blood loss. Underwent esophagogastroduodenoscopy. POSTOPERATIVE DIAGNOSES: 1. Small hiatal hernia. 2. Irregular Z-line. 3. Small polyp in the duodenal bulb. 4. Mild antral gastritis. At the time of endoscopy, no sign of bleeding seen. DESCRIPTION OF PROCEDURE: The patient was placed on her left lateral position and was given sedation by Anesthesia Department. A Pentax video gastroscope under direct vision passed down the oropharynx past the GE junction into the stomach and subsequently into the descending duodenum. The esophageal mucosa appears normal throughout. At the GE junction, the mucosa was irregular and irregular Z-line. She had a small hiatal hernia. Retroflexion failed to show any pathology in fundus and cardia. The gastric body, gastric antrum, no lesions. There was mild mucosal hyperemia edema over the pyloric channel. The duodenal bulb showed a small polyp. The descending duodenum, no pathology. ENDOSCOPIC IMPRESSION: Negative esophagogastroduodenoscopy and does not show any lesion for the anemia. RECOMMENDATION: 1. Iron supplement. 2. Diet as tolerated. 3. From GI standpoint, the patient can be discharged home today. We will follow up with Dr. Padilla as outpatient. Job ID: [id number]
--- NOTE | 2019-06-02 15:21 | OP ---
DATE OF PROCEDURE: 06/02/2019 OPERATIVE PROCEDURE: Colonoscopy. PREOPERATIVE DIAGNOSES: 1. Anemia. 2. Occult gastrointestinal bleeding. POSTOPERATIVE DIAGNOSES: 1. Hemorrhoids. 2. Otherwise normal colonoscopy. DESCRIPTION OF PROCEDURE: The patient was placed on her left lateral position and was given sedation by Anesthesia Department. A rectal exam was done before the scope was advanced into the rectum. No lesions felt on rectal exam. A Pentax video colonoscope was introduced into the rectum and advanced all the way to the cecum. The prep was excellent. The mucosa appeared normal throughout the colon with normal vascular pattern. The appendiceal orifice, ileocecal wall, and cecum well seen. No pathology seen. Withdrawal of scope in the cecum, ascending colon, hepatic flexure, no lesion seen. In the transverse colon, splenic flexure, descending colon, sigmoid colon, no lesions. Rectum showed hemorrhoids. Job ID: [id number]
[2019-06-02 17:19] VITALS: BP 118/59; TEMP 97.7
--- NOTE | 2019-06-04 10:03 | PQF ---
DEBI MAYES OBI, CHIZOBA C [id number] [facility]-245 [id number] CLINICAL DOCUMENTATION CLARIFICATION FORM: POST DISCHARGE Addendum to original discharge summary date: ____ Late entry note date: __ DATE: 06/04/2019 ATTN: CLIVE FREDERICK Please exercise your independent, professional judgment in responding to the clarification form. Clinical indicators are provided on the bottom of this form for your review Please check appropriate box(s): [ ] GI Bleeding is due to Gastritis [ ] GI Bleeding is due to hemorrhoids [ ] Other diagnosis [ ] Unable to determine In addition, please specify: Present on Admission (POA): [ ] Yes [ ] No [ ] Unable to determine For continuity of documentation, please document condition throughout progress notes and discharge summary. Thank You. CLINICAL INDICATORS - SIGNS / SYMPTOMS / LABS Get stool occult blood and iron chemistry-Documented in Hospitalist progress note on 05/31 by Clive Santos Obi Awaiting GI evaluation-Documented in Hospitalist progress note on 05/31 by Clive Santos Obi Occult gastrointestinal bleeding,Documented in OP note on06/02 by Etienne Hook Hemorrhoids-Documented in Colonoscopy OP note on06/02 by Etienne Hook Mild antral gastritis.At the time of endoscopy, no sig of bleeding seen- Documenetd in EGD on 06/02 by Etienne Hook Acute blood loss -Documented in EGD on 06/02 by Etienne Hook [employer] Hemorrhoids-Documented in Colonoscopy OP note on06/02 by Grant Hook Mild antral gastritis-Documented in EGD on 06/02 by Grant Hook TREATMENTS: Transfuse 2U PRBC, Monitor H&H after transfusion and in the AM-Documented in Hospitalist H&P on 05/30 by Geronimo Lott MD Protonix 40 mg IV BID-Documented in Hospitalist H&P on 05/30 by Geronimo Lott MD Consult placed for GI-Documented in Hospitalist H&P on 05/30 by Geronimo Lott MD Clear liquid diet-Documented in Hospitalist H&P on 05/30 by Geronimo Lott MD Colonoscopy -on06/02 by Etienne Hook EGD-on06/02 by Etienne Hook [employer] Winform Viewer (This form is maintained as a part of the permanent medical record) 2014 [employer]. All Rights Reserved [email or web address] [not provided] MTDD
--- NOTE | 2019-06-04 16:29 | PRG ---
DATE OF SERVICE: 06/01/2019 SUBJECTIVE: An 84-year-old female hospitalized with symptomatic anemia. The patient had no history of any overt GI bleeding. Denies history of melena or rectal bleeding. No nosebleeds. She has been transfused. She is actually feeling better after transfusion. The patient was on Xarelto, which has been discontinued over the last, I believe, 3 days. The patient is tolerating diet. Does not have a specific complaint. PHYSICAL EXAMINATION: VITAL SIGNS: Afebrile, pulse 72 Bp 130/70. HEENT: Conjunctivae are clear. NECK: Supple. CARDIOVASCULAR SYSTEM: First and second heart sounds are normal. LUNGS: Clear to auscultation. ABDOMEN: Soft. No organomegaly. No tenderness. IMPRESSION: Anemia with recent drop in blood count. The patient has no prior history of any gastrointestinal bleeding. The patient had a stool for occult blood, which came back positive for occult blood. PLAN: EGD and colonoscopy tomorrow. I did talk to Ms. Lacy in detail about procedure and the prep. , risks etc .. I will plan for EGD and colonoscopy tomorrow. Job ID: [id number] [facility]
--- NOTE | 2019-06-05 14:20 | CON ---
DATE OF CONSULTATION: 05/31/2019 REASON FOR CONSULTATION: Symptomatic anemia with no history of any GI blood loss. HISTORY OF PRESENT ILLNESS: Edilma Lacy is a very pleasant 84-year-old female with history of myocardial infarction more than 20 years ago and has had a stent placement done. The patient has history of atrial fibrillation and is on Xarelto. She does see Dr. Padilla, who is her primary care doctor and also sees Dr. Patel, who is her heavy equipment diesel mechanic. The patient comes in with fatigability, tiredness, lack of energy, and also occasional dizziness. Apparently, she lives in an assisted care facility and some of her friends told her she looks pale and she needs to go to a doctor. She has been feeling tired and fatigued over the last 2 to 3 weeks. She also has been having difficulty ambulating with dyspnea on exertion. Apparently, was using a friend's walker to get down to the cafeteria. Even going to the cafeteria ,she was feeling dyspneic with minimal exertion. She has no orthopnea. No history of any PND. No chest pain. she called ambulance and was brought to the ER yesterday and found to be profoundly anemic. Hemoglobin is 6.4. The patient had no prior history of anemia. No prior history of any peptic ulcer or any GI bleeding. The patient had a colonoscopy when she was living in [place], [place], I believe maybe 6 to 7 years ago and was told to be negative. She has no family history of any colon cancer. Her bowel movements are fairly regular. There is no prior history of any black tarry stool or any hematochezia, etc. Denies abdominal pain, nausea, or vomiting. No history of any heartburn. No dysphagia or odynophagia. Since admission, has been transfused and she is actually feeling better. The patient has been taking Xarelto and aspirin and she quit taking the Xarelto only yesterday. She took the last dose on Saturday night. She had no relevant history. ALLERGIES: PENICILLIN, ALLERGY TO FOOD PRODUCTS LIKE KALE. SOCIAL HISTORY: The patient is single. Does not smoke or drink alcohol. She moved from [place], [place] to [facility], I believe, 4 years ago to be close to her granddaughter. MEDICAL ILLNESSES: 1. Hypothyroidism, on replacement therapy. 2. Atrial fibrillation. 3. Coronary artery disease. MEDICATIONS: Include; 1. Levothyroxine. 2. Xarelto. 3. Metoprolol. 4. Lasix. 5. Aspirin. 6. Azathioprine 50 mg once a day. I am not sure why she is taking it. FAMILY HISTORY: One sister had hemochromatosis and of liver cancer. Another sister had a heterozygous gene for hemochromatosis. There is no other family member had any hemochromatosis. No family history of heart disease. No family history of other cancer. SYSTEM REVIEW: CONSTITUTIONAL: No history of any weight loss, has been feeling tired lately over the last probably about 4 to 6 weeks and also has mild dyspnea. HEAD: No chronic headache. No dizziness. EYES: No impaired vision. No diplopia. ENT: Unremarkable. NECK: No stiffness or pain. LUNGS: No chronic coughing. No hemoptysis. Dyspnea on exertion recently. CARDIOVASCULAR SYSTEM: Mild dyspnea on exertion. No chest pain. No palpitation. No orthopnea or PND. GI: No history of any black tarry stool. No abdominal pain. No nausea or vomiting. No hematochezia. : No dysuria or hematuria. Musculoskeletal, neuroendocrine, neuropsychiatry, nonrelevant. PHYSICAL EXAMINATION: GENERAL: Revealed a very pleasant female, appears very comfortable. She is awake, alert, and communicative. She is a good historian. VITAL SIGNS: She is afebrile. Pulse is 85, blood pressure is 132/75. HEENT: Conjunctivae are clear. NECK: Supple. No adenitis or thyromegaly noted. CARDIOVASCULAR SYSTEM: First and second heart sounds are normal. LUNGS: Clear to auscultation. ABDOMEN: Soft. Abdomen is nondistended. Abdomen is nontender. No organomegaly. No masses. Bowel sounds normal. EXTREMITIES: Reveal no edema. CENTRAL NERVOUS SYSTEM: Grossly within normal limits. ADMITTING LABORATORY DATA: CBC; WBC 6500, hemoglobin 6.4, hematocrit 20.3, MCV 75.6, platelet count 305,000, polymorphs 64, lymphocytes 22. Serum chemistry; sodium 136, potassium 3.7, chloride 104, bicarb 24, BUN is 10, creatinine 0.83, glucose 116, calcium 9.1. Iron is 215, TIBC is 443, ferritin 10.62. Alkaline phosphatase 133, ALT 7, AST 12. BNP 185. Albumin 3.9. CLINICAL IMPRESSION: 1. An 84-year-old female with anemia, appears to be acute in origin. The patient has had dyspnea over the last couple of weeks and has been feeling tired and fatigued. She has no prior history of any anemia. She has no history of any GI blood loss. From the history and she is on Xarelto and aspirin, I believe she most likely has some upper GI pathology for the bleeding. 2. Coronary artery disease. 3. Hypothyroidism. 4. Atrial fibrillation, on Xarelto. RECOMMENDATIONS: 1. PPI therapy. 2. Hold off Xarelto _for few days, before undergoing endoscopic studies because of being on Xarelto. 3. Follow up hemoglobin and hematocrit. 4. Transfuse p.r.n. Hopefully EGD and colonoscopy can be done probably in the next 48 hours. Job ID: [id number]
== END 2019-06-02 18:40 | disposition home or self-care (01) | DRG 812 ==
LOC: ERS 14:33 → 2SW 18:15 → INTOOBSV 18:15 → OBSVTOIN 06-01 16:48
PROVIDERS: ADMIT Internal Medicine; ATTEND Internal Medicine
PROC: 30233N1 Transfusion of Nonautologous Red Blood Cells into Peripheral Vein, Percutaneous Approach (ICD-10-PCS; 2019-05-30)
PROC: 0DJD8ZZ Inspection of Lower Intestinal Tract, Via Natural or Artificial Opening Endoscopic (ICD-10-PCS; principal; 2019-06-01)
PROC: 0DJ08ZZ Inspection of Upper Intestinal Tract, Via Natural or Artificial Opening Endoscopic (ICD-10-PCS; 2019-06-02)
DX: D62 Acute posthemorrhagic anemia (principal); K92.2 Gastrointestinal hemorrhage, unspecified; I48.91 Unspecified atrial fibrillation; I25.10 Atherosclerotic heart disease of native coronary artery without angina pectoris; K75.4 Autoimmune hepatitis; E03.9 Hypothyroidism, unspecified; K64.9 Unspecified hemorrhoids; K29.70 Gastritis, unspecified, without bleeding; K44.9 Diaphragmatic hernia without obstruction or gangrene; K31.7 Polyp of stomach and duodenum; Z79.01 Long term (current) use of anticoagulants; Z95.5 Presence of coronary angioplasty implant and graft
CPT/HCPCS: 36415; 36430; 71046; 80053; 80069; 82274; 82728; 83540; 83550; 83880; 84484; 85014; 85018; 85025; 86850; 86900; 86901; 90471; 90670; 93005; 94760; 96374; C9113; G0009; J2001; J2704; J2916; J3490; P9016

== ENCOUNTER 2019-09-11 13:20 | Inpatient (IN) | payer MEDICARE, BC, OTHER ==
[2019-09-11 14:32] LABS: #Eosinphils 0.1 thou/uL (0.0-0.7); #Lymphocytes 0.5 thou/uL (1.20-3.40); #Monocytes 0.8 thou/uL (0.11-0.59); %Basophils 0.3 % (0.0-1.0); %Eosinophils 0.9 % (0.0-10.0); %Lymphocytes 4.2 % (21.0-51.0); %Monocytes 6.3 % (0.0-10.0); %Neutrophils 88.4 % (42.0-75.0); Hemoglobin 14.1 g/dL (12.0-16.0); Mean Corpuscular HGB CONC 33.6 g/dL (32.0-36.0); Mean Corpuscular Hemoglobin 30.7 pg (27.0-31.0); Mean Corpuscular Volume 91.4 fL (78.0-98.0); Mean Platelet Volume 8.2 fL (7.4-10.4); Platelet Count 214 thou/uL (130-400); RBC Distribution Width 18.9 % (11.5-14.5); Red Blood Cell (RBC) Count 4.59 mill/uL (4.20-5.40); White Blood Cell (WBC) Count 12.4 thou/uL (4.8-10.8)
--- NOTE | 2019-09-11 14:53 | RAD ---
Frontal radiograph chest: 09/11/2019 COMPARISON: 10/23/2017 HISTORY: Cough, shortness of breath, fever FINDINGS: There are coarse increased linear interstitial densities noted within the perihilar regions and both lung bases, left greater than right, similar when compared to prior imaging. In addition, there is a new subtle area of hazy/groundglass opacity within the lateral aspect of the mid right willa g zone. A similar area is suspected within the lateral aspect of the mid left lung zone overlying the inferior aspect of the left scapular tip. No lobar consolidation or alveolar edema. There is athe rosclerotic calcified patient aortic arch. IMPRESSION: Chronic interstitial opacity with a hazy new areas of groundglass opacity as detailed abo ve. This suggests chronic interstitial disease with possible superimposed infectious pneumonitis. Recommend follow-up imaging following treatment to document resolution. This could be related to atyp ical viral/interstitial pneumonitis in the proper clinical setting.
[2019-09-11 14:57] LABS: ALT (SGPT) 8 U/L (8-55); AST (SGOT) 14 U/L (5-34); Albumin 3.9 g/dL (3.4-4.8); Alkaline Phosphatase 135 U/L (40-110); Anion Gap 12 mmol/L (10-20); BUN (Urea Nitrogen) 9 mg/dL (9.8-20.1); Bilirubin, Total 1.5 mg/dL (0.2-1.2); CK (CPK) 56 U/L (29-168); Calc. Creatinine Clearance 0 mL/min (70-130); Carbon Dioxide 26 mmol/L (23-31); Chloride 97 mmol/L (98-107); Estimated GFR-MDRD 58; Globulin 3.7 g/dL (2.4-3.5); Glucose 141 mg/dL (83-110); Potassium 3.5 mmol/L (3.5-5.1); Protein, Total 7.6 g/dL (6.0-8.3); Sodium 131 mmol/L (136-145)
[2019-09-11 15:01] LABS: CKMB 0.9 ng/mL (0-6.6)
[2019-09-11] MEDS ORDERED: Cefepime 2 GM VIAL ONE (16:45)
[2019-09-11 19:03] VITALS: BMI 25.7
[2019-09-11] MEDS: Acetaminophen 325 MG TAB PO PRN (20:22)
[2019-09-11] MEDS: Sodium Chloride 0.9% 1,000 ML IV SCH (20:25)
[2019-09-11] MEDS ORDERED: Melatonin 3 MG TAB PO PRN (22:02)
[2019-09-11] MEDS: Guaifenesin DM 100-10/5 ML UDCUP PO PRN (22:48)
[2019-09-12 05:53] LABS: #Eosinphils 0.4 thou/uL (0.0-0.7); #Lymphocytes 1.2 thou/uL (1.20-3.40); #Monocytes 1.1 thou/uL (0.11-0.59); #Neutrophils 9.2 thou/uL (1.40-6.50); %Basophils 0.2 % (0.0-1.0); %Eosinophils 3.3 % (0.0-10.0); %Lymphocytes 10.1 % (21.0-51.0); %Neutrophils 77.5 % (42.0-75.0); Hemoglobin 12.1 g/dL (12.0-16.0); Mean Corpuscular HGB CONC 33.5 g/dL (32.0-36.0); Mean Corpuscular Hemoglobin 30.9 pg (27.0-31.0); Mean Corpuscular Volume 92.2 fL (78.0-98.0); Mean Platelet Volume 8.1 fL (7.4-10.4); Platelet Count 198 thou/uL (130-400); RBC Distribution Width 18.5 % (11.5-14.5); Red Blood Cell (RBC) Count 3.92 mill/uL (4.20-5.40); White Blood Cell (WBC) Count 11.9 thou/uL (4.8-10.8)
--- NOTE | 2019-09-12 06:07 | HP ---
CHIEF COMPLAINT: Cough. HISTORY OF PRESENT ILLNESS: This patient is an 84-year-old female, who lives in an assisted living facility, who presented to the [facility] today because of symptoms of cough and malaise. The patient reports that she thinks she started feeling bad yesterday, started having some cough, mild shortness of breath and generalized malaise. Denies any specific pain or aches. Denies any fever. Says her cough is not significantly productive and she does not have significant rhinorrhea or sore throat. She has had no ill contacts that she is aware of. She has had no chest pain and no palpitations. REVIEW OF SYSTEMS: All other systems reviewed. All pertinent positives and negatives noted in the HPI. PAST MEDICAL HISTORY: Atrial fibrillation, Sjogren's disease, coronary artery disease, status post prior GA and stent, hypothyroidism, hyperlipidemia, autoimmune hepatitis, history of depression. PAST SURGICAL HISTORY: Right foot surgery, tonsillectomy, eye surgery, cardioversion 2016. FAMILY HISTORY: Mother has diabetes. Father has heart disease. SOCIAL HISTORY: Patient currently lives in assisted living facility. She is a former smoker. Social alcohol. . Retired. ALLERGIES: PENICILLIN. CURRENT MEDICATIONS: 1. Xarelto 20 mg daily. 2. Levothyroxine 112 mcg daily. 3. Aspirin 81 mg daily. 4. Lasix 20 mg daily. 5. Azathioprine 50 mg daily. 6. Metoprolol 25 mg daily. PHYSICAL EXAMINATION: VITAL SIGNS: Initial set of vital signs, BP 114/71, pulse 110, respirations 20, O2 saturation 94%. Peak heart rate was 127 and peak temperature was 99.8. GENERAL APPEARANCE: Age-appropriate female. She is very pleasant and cooperative, very talkative. She did have to ask me my name on multiple occasions, did not appear to misunderstand as she repeated it, but appeared to not recall. HEENT: PERRL. No OP lesions. NECK: Supple and symmetric. HEART: Irregular rate and rhythm without murmurs, gallops, or rubs. LUNGS: Clear to auscultation bilaterally with good chest wall expansion and air exchange. ABDOMEN: Soft, nontender, and nondistended with positive bowel sounds. No masses. No organomegaly. EXTREMITIES: No cyanosis, clubbing, or edema. PSYCH: Appears to have normal affect and behavior, although slightly forgetful. NEUROLOGICAL: Again has some forgetfulness, but no focal deficits. LABORATORY DATA: White count 12.4, hemoglobin 14.1, platelets 212. She has 88.4% neutrophils, 4.2% lymphocytes. Sodium 131, potassium 3.5, chloride 97, CO2 is 26, BUN 9, creatinine 0.92, glucose 141, lactic acid 1.4, calcium 9.0, total bilirubin 1.5, AST 14, ALT 8, and alkaline phosphatase 135. Troponin less than 0.01. Stool for occult blood is negative. Chest x-ray shows chronic interstitial opacity with hazy new areas of ground-glass opacity, suggest chronic interstitial disease with possible superimposed infectious pneumonitis, could be consistent with atypical viral or interstitial pneumonitis. IMPRESSION AND PLAN: 1. Possible community-acquired pneumonia. The patient has slightly elevated white count with a left shift, which would be suggestive of a possible bacterial pneumonia, which would be consistent with her symptoms of cough and shortness of breath. However, given the current situation, a COVID test has been obtained as well and the patient will be appropriately isolated until we get the results on that back. In the meantime, we will cover with Levaquin, avoiding nebs on potential COVID patients, and I do not think she has the ability to do an inhaler properly at the moment, so we will see if she needs that going forward. Certainly, she is at risk because she is on azathioprine because of underlying autoimmune disorders. 2. Atrial fibrillation with rapid ventricular response. The rapid rate is likely appropriate to the underlying pneumonia and not representing uncontrolled rate. Therefore, we will continue with her daily beta blockers. We will give her a one time dose of diltiazem p.o. as her blood pressure seems to be holding well and I do not think she is actually symptomatic from the atrial fibrillation. 3. Hypothyroidism. Continue with levothyroxine. 4. Coronary artery disease. Continue beta jody, aspirin. 5. History of autoimmune hepatitis. Continue azathioprine for now. 6. Reported history of hyperlipidemia. Patient also has a history of being on atorvastatin. We will need to try to clarify her home medication list further. It appears as though she did actually obtain the atorvastatin on August 17 from her pharmacy at 10 mg at bedtime. Also appears that she might have been taking some Lasix as well. Her last echocardiogram was in 2018, which showed normal ejection fraction. So, it does not appear that this would be related to any type of underlying heart failure. Job ID: [id number]
[2019-09-12 06:11] LABS: Anion Gap 11 mmol/L (10-20); BUN (Urea Nitrogen) 8 mg/dL (9.8-20.1); Calc. Creatinine Clearance 63 mL/min (70-130); Calcium 8.9 mg/dL (7.8-10.44); Carbon Dioxide 24 mmol/L (23-31); Chloride 100 mmol/L (98-107); Estimated GFR-MDRD 74; Glucose 144 mg/dL (83-110); Sodium 131 mmol/L (136-145)
[2019-09-12] MEDS: Guaifenesin DM 100-10/5 ML UDCUP PO PRN ×2 (09:05→16:04)
[2019-09-12] MEDS: Sodium Chloride 0.9% 1,000 ML IV SCH (12:07)
--- NOTE | 2019-09-12 14:16 | PDOC.HOSPP ---
- Subjective Encounter Date: 09/12/19 Subjective: Doing ok. Still has the cough. No other complaints. - Objective Vital Signs & Weight: Vital Signs (12 hours) Temp Pulse Resp BP BP Pulse Ox 09/12/19 11:08 97.9 F 95 18 143/67 H 94 L 09/12/19 08:10 98.3 F 109 H 18 148/67 H 94 L 09/12/19 03:00 98.3 F 80 16 155/85 H 91 L Weight Weight 155 lb Result Diagrams: 09/12/19 05:21 09/12/19 05:21 Hospitalist ROS - Medication Medications: Active Medications Generic Name Dose Route Start Last Admin Trade Name Freq PRN Reason Stop Dose Admin Acetaminophen 650 mg 09/11/19 18:53 09/11/19 20:22 Tylenol PO 650 mg Q4H PRN Administration Headache/Fever/Mild Pain (1-3) Guaifenesin/Dextromethorphan 15 ml 09/11/19 22:02 09/12/19 09:05 Robitussin Dm PO 15 ml Q4H PRN Administration Cough Sodium Chloride 1,000 mls @ 75 mls/hr 09/11/19 19:00 09/12/19 12:07 Normal Saline 0.9% IV 1,000 mls .[id number] ANNETTE Administration Levofloxacin 500 mg/ Device 100 mls @ 100 mls/hr 09/12/19 09:00 09/12/19 08: 22 IVPB 100 mls Q24HR ANNETTE Administration - Exam General Appearance: NAD, awake alert Heart: RRR, no murmur, no gallops, no rubs, normal peripheral pulses Respiratory: no wheezes, no ronchi, no tachypnea, rales (Fine, scattered, bilateral.) Gastrointestinal: soft, non-tender, non-distended, normal bowel sounds, no palpable masses, no hepatomegaly, no splenomegaly, no bruit Extremities: no cyanosis, no clubbing, no edema Musculoskeletal: normal tone Psychiatric: normal affect, normal behavior Hosp A/P (1) Pneumonia Code(s): J18.9 - PNEUMONIA, UNSPECIFIED ORGANISM Status: Acute (2) Atrial fibrillation Code(s): I48.91 - UNSPECIFIED ATRIAL FIBRILLATION Status: Acute (3) Autoimmune hepatitis Code(s): K75.4 - AUTOIMMUNE HEPATITIS Status: Acute (4) Hypothyroidism Code(s): E03.9 - HYPOTHYROIDISM, UNSPECIFIED Status: Acute (5) Microcytic anemia Code(s): D50.9 - IRON DEFICIENCY ANEMIA, UNSPECIFIED Status: Acute (6) Chronic anticoagulation Code(s): Z79.01 - SHELTER (CURRENT) USE OF ANTICOAGULANTS Status: Chronic (7) Coronary artery disease Code(s): I25.10 - ATHSCL HEART DISEASE OF [place] CORONARY ARTERY W/O ANG PCTRS Status: Chronic (8) HLD (hyperlipidemia) Code(s): E78.5 - HYPERLIPIDEMIA, UNSPECIFIED Status: Acute - Plan Overall, stable. Looks good. Still has the cough that sounds like there is some phlegm, but not being productive. Continue treatment for CAP. She has defervesced. Covid swab pending. With leukocytosis and left shift, less likely to be viral. Weaning oxygen.
[2019-09-12] MEDS: Acetaminophen 325 MG TAB PO PRN (16:04)
[2019-09-12] MEDS ORDERED: Melatonin 3 MG TAB PO PRN (19:11)
[2019-09-12] MEDS: Aspirin 81 mg Enteric Coated Tablet PO SCH (20:30)
[2019-09-12] MEDS: Atorvastatin Calcium 20 MG TAB PO SCH (20:30)
[2019-09-13] MEDS: Sodium Chloride 0.9% 1,000 ML IV SCH ×3 (02:06→18:18)
[2019-09-13] MEDS: Acetaminophen 325 MG TAB PO PRN ×2 (03:43→15:07)
[2019-09-13] MEDS: Guaifenesin DM 100-10/5 ML UDCUP PO PRN ×2 (03:45→15:07)
[2019-09-13] MEDS: Levothyroxine Sodium 100 MCG TAB PO SCH (05:21)
[2019-09-13] MEDS: azaTHIOprine 50 MG TAB PO SCH (08:12)
[2019-09-13] MEDS: Furosemide 20 MG TAB PO SCH (08:12)
--- NOTE | 2019-09-13 15:03 | PDOC.HOSPP ---
- Subjective Encounter Date: 09/13/19 Subjective: Still does not feel great. Fatigue, cough. Now has hoarseness as well. - Objective Vital Signs & Weight: Vital Signs (12 hours) Temp Pulse Resp BP BP Pulse Ox 09/13/19 11:33 98.5 F 91 20 154/75 H 93 L 09/13/19 08:11 99.4 F 82 18 120/64 95 09/13/19 03:40 100.3 F H 09/13/19 03:36 79 18 123/65 94 L Weight Weight 155 lb I&O: 09/12/19 09/13/19 09/14/19 06:59 06:59 06:59 Intake Total 1548 480 Balance 1548 480 Result Diagrams: 09/12/19 05:21 09/12/19 05:21 Hospitalist ROS - Medication Medications: Active Medications Generic Name Dose Route Start Last Admin Trade Name Freq PRN Reason Stop Dose Admin Acetaminophen 650 mg 09/11/19 18:53 09/13/19 03:43 Tylenol PO 650 mg Q4H PRN Administration Headache/Fever/Mild Pain (1-3) Aspirin 81 mg 09/12/19 21:00 09/12/19 20:30 Ecotrin PO 81 mg HS ANNETTE Administration Atorvastatin Calcium 20 mg 09/12/19 21:00 09/12/19 20:30 Lipitor PO 20 mg HS ANNETTE Administration Azathioprine 50 mg 09/13/19 09:00 09/13/19 08:12 Imuran PO 50 mg DAILY ANNETTE Administration Furosemide 20 mg 09/13/19 09:00 09/13/19 08:12 Lasix PO 20 mg DAILY ANNETTE Administration Guaifenesin/Dextromethorphan 15 ml 09/11/19 22:02 09/13/19 03:45 Robitussin Dm PO 15 ml Q4H PRN Administration Cough Sodium Chloride 1,000 mls @ 75 mls/hr 09/11/19 19:00 09/13/19 14:57 Normal Saline 0.9% IV Not Given .[id number] ANNETTE Levofloxacin 500 mg/ Device 100 mls @ 100 mls/hr 09/12/19 09:00 09/13/19 08: 13 IVPB 100 mls Q24HR ANNETTE Administration Levothyroxine Sodium 100 mcg 09/13/19 06:00 09/13/19 05:21 Synthroid PO 100 mcg 0600 ANNETTE Administration Metoprolol Succinate 12.5 mg 09/13/19 09:00 09/13/19 08:12 Toprol Xl PO 12.5 mg DAILY ANNETTE Administration Pantoprazole Sodium 40 mg 09/13/19 09:00 09/13/19 08:13 Protonix PO 40 mg DAILY ANNETTE Administration - Exam General Appearance: NAD, awake alert Heart: RRR, no murmur, no gallops, no rubs, normal peripheral pulses Respiratory: rales, wheezes (very mild) Gastrointestinal: soft, non-tender, non-distended, normal bowel sounds, no palpable masses, no hepatomegaly, no splenomegaly, no bruit Extremities: no cyanosis, no clubbing, no edema Neurological: no focal deficits Musculoskeletal: normal tone Psychiatric: normal affect, normal behavior, A&O x 3 Psychiatric - other findings: She does forget some things quickly. Hosp A/P (1) Pneumonia Code(s): J18.9 - PNEUMONIA, UNSPECIFIED ORGANISM Status: Acute (2) Atrial fibrillation Code(s): I48.91 - UNSPECIFIED ATRIAL FIBRILLATION Status: Acute (3) Autoimmune hepatitis Code(s): K75.4 - AUTOIMMUNE HEPATITIS Status: Acute (4) Hypothyroidism Code(s): E03.9 - HYPOTHYROIDISM, UNSPECIFIED Status: Acute (5) Microcytic anemia Code(s): D50.9 - IRON DEFICIENCY ANEMIA, UNSPECIFIED Status: Acute (6) Chronic anticoagulation Code(s): Z79.01 - CUSTODIAL (CURRENT) USE OF ANTICOAGULANTS Status: Chronic (7) Coronary artery disease Code(s): I25.10 - ATHSCL HEART DISEASE OF [place] CORONARY ARTERY W/O ANG PCTRS Status: Chronic (8) HLD (hyperlipidemia) Code(s): E78.5 - HYPERLIPIDEMIA, UNSPECIFIED Status: Acute - Plan Overall, stable. Looks pretty good, but still symptomatic without much improvement there. Still has the cough that sounds like there is some phlegm, but not being productive. Continue treatment for CAP. She has not fully defervesced. Still has some low grade fever overnight. Covid test negative. Discussed with Dr. Parks. Given the ongoing fever, symptoms, she is more likely to have Covid. Repeat testing would not likely be helpful. Will consider her as if she were positive. She lives alone in a [facility]. She does not have help there and does not feel like she will be able to care for herself there right now. Weaned oxygen.
--- NOTE | 2019-09-13 19:29 | PDOC.EVN ---
Event Note - Event Note Event Note: Talked to patient's granddaughter Yarely Gibbs. Explained the fact that we ae moving foward as if Ms. Lacy is positive in spite of the negative test. We will assess her daily and make decisions regarding the next steps as we go. Patient would have difficulty with managing herself in her apartment, but would be difficult to place her right now.
[2019-09-13] MEDS: Aspirin 81 mg Enteric Coated Tablet PO SCH (19:51)
[2019-09-13] MEDS: Atorvastatin Calcium 20 MG TAB PO SCH (19:51)
[2019-09-14] MEDS: Guaifenesin DM 100-10/5 ML UDCUP PO PRN ×2 (01:43→05:58)
[2019-09-14] MEDS: Sodium Chloride 0.9% 1,000 ML IV SCH ×3 (04:51→19:12)
[2019-09-14] MEDS: Levothyroxine Sodium 100 MCG TAB PO SCH (04:51)
[2019-09-14] MEDS: Furosemide 20 MG TAB PO SCH (08:54)
[2019-09-14] MEDS: azaTHIOprine 50 MG TAB PO SCH (08:55)
[2019-09-14] MEDS ORDERED: PROVENTIL INHALER 6.7 G (200 INHALATIONS) INH PRN (10:39)
--- NOTE | 2019-09-14 10:44 | PDOC.HOSPP ---
- Subjective Encounter Date: 09/14/19 Subjective: About the same. A little less hoarse. Still feels SOB with activity, including coughing. Says she has used an inhaler successfully in the past. - Objective Vital Signs & Weight: Vital Signs (12 hours) Temp Pulse Resp BP Pulse Ox 09/14/19 08:51 100.5 F H 92 18 140/61 91 L 09/14/19 04:00 100.1 F H 83 16 139/71 92 L Weight Weight 155 lb I&O: 09/13/19 09/14/19 09/15/19 06:59 06:59 06:59 Intake Total 1548 3620 Balance 1548 3620 Result Diagrams: 09/12/19 05:21 09/12/19 05:21 Hospitalist ROS - Medication Medications: Active Medications Generic Name Dose Route Start Last Admin Trade Name Freq PRN Reason Stop Dose Admin Acetaminophen 650 mg 09/11/19 18:53 09/13/19 15:07 Tylenol PO 650 mg Q4H PRN Administration Headache/Fever/Mild Pain (1-3) Aspirin 81 mg 09/12/19 21:00 09/13/19 19:51 Ecotrin PO 81 mg HS ANNETTE Administration Atorvastatin Calcium 20 mg 09/12/19 21:00 09/13/19 19:51 Lipitor PO 20 mg HS ANNETTE Administration Azathioprine 50 mg 09/13/19 09:00 09/14/19 08:55 Imuran PO 50 mg DAILY ANNETTE Administration Furosemide 20 mg 09/13/19 09:00 09/14/19 08:54 Lasix PO 20 mg DAILY ANNETTE Administration Guaifenesin/Dextromethorphan 15 ml 09/11/19 22:02 09/14/19 05:58 Robitussin Dm PO 15 ml Q4H PRN Administration Cough Sodium Chloride 1,000 mls @ 75 mls/hr 09/11/19 19:00 09/14/19 04:51 Normal Saline 0.9% IV 1,000 mls .[id number] ANNETTE Administration Levofloxacin 500 mg/ Device 100 mls @ 100 mls/hr 09/12/19 09:00 09/14/19 08: 56 IVPB 100 mls Q24HR ANNETTE Administration Levothyroxine Sodium 100 mcg 09/13/19 06:00 09/14/19 04:51 Synthroid PO 100 mcg 0600 ANNETTE Administration Metoprolol Succinate 12.5 mg 09/13/19 09:00 09/14/19 08:54 Toprol Xl PO 12.5 mg DAILY ANNETTE Administration Pantoprazole Sodium 40 mg 09/13/19 09:00 09/14/19 08:55 Protonix PO 40 mg DAILY ANNETTE Administration - Exam General Appearance: NAD, awake alert Heart: RRR, no murmur, no gallops, no rubs, normal peripheral pulses Respiratory: rales, wheezes (Diffuse, bilateral.) Gastrointestinal: soft, non-tender, non-distended, normal bowel sounds, no palpable masses, no hepatomegaly, no splenomegaly, no bruit Extremities: no cyanosis, no clubbing, no edema Skin: normal turgor Psychiatric: normal affect, normal behavior Hosp A/P (1) Pneumonia Code(s): J18.9 - PNEUMONIA, UNSPECIFIED ORGANISM Status: Acute (2) Atrial fibrillation Code(s): I48.91 - UNSPECIFIED ATRIAL FIBRILLATION Status: Acute (3) Autoimmune hepatitis Code(s): K75.4 - AUTOIMMUNE HEPATITIS Status: Acute (4) Hypothyroidism Code(s): E03.9 - HYPOTHYROIDISM, UNSPECIFIED Status: Acute (5) Microcytic anemia Code(s): D50.9 - IRON DEFICIENCY ANEMIA, UNSPECIFIED Status: Acute (6) Chronic anticoagulation Code(s): Z79.01 - [employer]HE OPERATOR (CURRENT) USE OF ANTICOAGULANTS Status: Chronic (7) Coronary artery disease Code(s): I25.10 - ATHSCL HEART DISEASE OF [place] CORONARY ARTERY W/O ANG PCTRS Status: Chronic (8) HLD (hyperlipidemia) Code(s): E78.5 - HYPERLIPIDEMIA, UNSPECIFIED Status: Acute - Plan Pneumonia: Has negative CV test, but treating assuming positive without retesting. Still has low grade fever. Wheezing. On Levaquin. Immune compromised by azothioprine. Acute hypoxic resp failure: Continue oxygen. Add MDI as wheezing is now prominent. Autoimmune hepatitis: Continuing Azothioprine for now. Hx of Afib: Watch carefully after initiating MDI. Aspirin only. Beta jody with good rate control. CAD: Stable. Asa, BB,statin
[2019-09-14 16:25] LABS: Complement-C4 19.2 mg/dL (Not Available)
--- NOTE | 2019-09-14 17:27 | CON ---
DATE OF CONSULTATION: 09/14/2019 REASON FOR CONSULTATION: Possible COVID-19 infection. HISTORY OF PRESENT ILLNESS: An 84-year-old who has a history of Sjogren syndrome and autoimmune hepatitis with positive autoantibodies in the past, managed with prednisone and then Imuran, who was admitted with persistent coughing spells and a change in her chest x-ray suggestive of maybe a superimposed pneumonitis. COVID test was submitted, which was negative. We were asked to evaluate because of persistence of fever. Currently, she is awake and she did not cough during the exam. She was just quite restless and could not remember pretty much anything over her history, for example, she did not remember that she had a diagnosis of autoimmune hepatitis via liver biopsy and did not remember that she had a positive systemic lupus erythematosus test in the past. She currently denies headaches. No visual symptoms. No sore throat. Still claims that she is coughing intermittently, but no sputum production. No dyspnea or chest pain. No abdominal pain or diarrhea. No genitourinary symptoms. No joint symptoms. No myalgias. Sense of smell is preserved. PAST MEDICAL HISTORY: 1. Sjogren syndrome. 2. Positive ALANNA test with a high titer of an anti-DNA double-stranded antibody test. 3. Coronary artery disease. 4. Prior ND and stent. 5. Hypothyroidism. 6. Hyperlipidemia. 7. Autoimmune hepatitis, biopsy-proven with bridging fibrosis. SURGICAL HISTORY: 1. Foot surgery. 2. Tonsillectomy. 3. Cataracts. 4. Cardioversion. FAMILY HISTORY: Type 2 diabetes. SOCIAL HISTORY: Lives in an independent facility, although it is hard to believe that what she is saying due to her memory impairment. Former smoker. Drinks occasionally. . Retired. ALLERGIES: PENICILLIN. SHE DOES NOT REMEMBER EXACTLY WHICH TYPE OF ALLERGY. CURRENT MEDICATIONS: 1. Lipitor. 2. Imuran 50 mg daily. 3. Lasix. 4. Levofloxacin. 5. Synthroid. 6. Toprol. 7. Protonix. PHYSICAL EXAMINATION: VITAL SIGNS: Temperature max 101.8 on arrival and she is now 100.5, blood pressure 140/60, pulse 83, respirations 18, and O2 sats have ranged from 96 down to 92, now up to 97. She is on nasal cannula O2 supplementation. SKIN: No skin lesions. Peripheral IV access. She is voiding in the bedside commode. No lymphadenopathy. HEENT: Ocular movements conjugate. Conjunctivae normal. Nasal passages patent. Oral cavity with quite a few teeth in place with some decay, but fairly good shape. NECK: Supple. No jugular vein distention or carotid bruits. LUNGS: With very faint inspiratory crackles in the left base, but otherwise clear. No wheezing. HEART: S1 and S2. Regular rate. No S3 or S4. ABDOMEN: Soft, not distended or tender. No ascites. No bladder distention. EXTREMITIES: No joint inflammatory activity. No edema. 1+ dorsalis pedis. Cap refill normal. NEUROLOGIC: Nonfocal. She does have quite a bit of memory impairment and could not remember any detail from her recent or past medical history except that she had Sjogren syndrome. LABORATORY DATA: White cell count is 12.4 with 80% neutrophils, total lymphocyte was 500 and then now 1.2, hemoglobin 14, and platelets 214. Sodium 131, creatinine 0.92, alkaline phosphatase 135, transaminases normal, and bilirubin 1.5. 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 Her last CRP is from 2016, less than 0.5. Microbiology, negative blood cultures and COVID-19 test was reportedly negative. ASSESSMENT: 1. Sjogren syndrome, positive fldl-[id number] DNA antibody, autoimmune hepatitis, on Imuran. 2. Cough with possible superimposed ground-glass opacities on top of chronic interstitial pattern. 3. Low-grade temperature elevation. DISCUSSION: Differential diagnosis includes an opportunistic infectious process other than the feared COVID infection, such as pneumocystis, cytomegalovirus, cryptococcus neoformans, or Histoplasma capsulatum. A lymphoproliferative disorder is also within the realm of possibilities, although less likely. Finally, an autoimmune process, for example, exacerbation of her underlying autoimmune process with systemic lupus erythematosus and pneumonitis is to be considered. We will submit complement levels. Repeat anti-DNA double stranded titers, pneumocystis assays with Fungitell measurement and the crypto and histoplasma antigens and CMV, DNA, PCR. Repeat the COVID test. Job ID: [id number]
[2019-09-14] MEDS: Aspirin 81 mg Enteric Coated Tablet PO SCH (19:12)
[2019-09-14] MEDS: Atorvastatin Calcium 20 MG TAB PO SCH (19:12)
[2019-09-15] MEDS: Levothyroxine Sodium 100 MCG TAB PO SCH (05:09)
[2019-09-15] MEDS: Sodium Chloride 0.9% 1,000 ML IV SCH ×2 (08:53→20:49)
[2019-09-15] MEDS: Furosemide 20 MG TAB PO SCH (08:53)
[2019-09-15] MEDS: azaTHIOprine 50 MG TAB PO SCH (08:53)
[2019-09-15 11:59] LABS: ANA Symphony (Qualitative) Negative (Negative); ANA Symphony (Quantitative) 0.3 Ratio (< 0.7 Negative); dsDNA IgG Antibody 3.6 IU/mL (<10 Negative)
[2019-09-15] MEDS: Guaifenesin DM 100-10/5 ML UDCUP PO PRN (14:17)
--- NOTE | 2019-09-15 16:48 | PRG ---
DATE OF SERVICE: 09/15/2019 SUBJECTIVE: The patient has a hacking cough and not much sputum and that is really bothering her. No headaches. No diarrhea. No abdominal pain. No vomiting. OBJECTIVE: VITAL SIGNS: T-max 100.8, blood pressure 120/57, pulse 78, respirations 16, and O2 saturation 94% to 97%. GENERAL: Disheveled, appears in little bit of distress from this coughing spells. HEENT: Ocular movements conjugate. LUNGS: With fairly clear breath sounds. HEART: S1 and S2. Regular rate. ABDOMEN: Soft, not distended. EXTREMITIES: Moves all extremities equally. No edema. LABORATORY DATA: White cell count is 11.9, hemoglobin 12, platelets 198, 77% neutrophils. Creatinine 0.75, bilirubin 1.5. Transaminases normal. CRP is 20.69. Albumin 3.9. ALANNA was negative. The anti-DNA antibody negative. Complement was normal. The other assays are pending. ASSESSMENT AND DISCUSSION: Sjogren syndrome and autoimmune hepatitis, on Imuran. At this time, the autoantibody assays were negative, so the possibility of an opportunistic infection is increased. The second COVID test is pending. If the second is negative, I would think that the post-test likelihood of having it is quite low and I would focus on an opportunistic infectious process. Job ID: [id number]
[2019-09-15] MEDS: Atorvastatin Calcium 20 MG TAB PO SCH (20:49)
[2019-09-15] MEDS: Aspirin 81 mg Enteric Coated Tablet PO SCH (20:49)
--- NOTE | 2019-09-15 22:22 | PDOC.HOSPP ---
- Subjective Encounter Date: 09/15/19 Encounter Time: 17:00 Subjective: THe patient states that she continues to have mild dry cough and some shortness of breath but is improving. She doesn't feel 100% yet, would like to go home when she knows she's 100% better. - Objective Vital Signs & Weight: Vital Signs (12 hours) Temp Pulse Resp BP BP Pulse Ox 09/15/19 20:42 100.5 F H 90 20 137/67 93 L 09/15/19 16:33 99.5 F 80 14 134/66 93 L 09/15/19 12:50 99.8 F H 78 16 124/57 L 94 L Weight Weight 155 lb I&O: 09/14/19 09/15/19 09/16/19 06:59 06:59 06:59 Intake Total 3620 2811 2135 Output Total 400 Balance 3620 2411 2135 Result Diagrams: 09/12/19 05:21 09/12/19 05:21 Hospitalist ROS - Review of Systems Constitutional: denies: fever, chills - Medication Medications: Active Medications Generic Name Dose Route Start Last Admin Trade Name Freq PRN Reason Stop Dose Admin Acetaminophen 650 mg 09/11/19 18:53 09/13/19 15:07 Tylenol PO 650 mg Q4H PRN Administration Headache/Fever/Mild Pain (1-3) Aspirin 81 mg 09/12/19 21:00 09/15/19 20:49 Ecotrin PO 81 mg HS ANNETTE Administration Atorvastatin Calcium 20 mg 09/12/19 21:00 09/15/19 20:49 Lipitor PO 20 mg HS ANNETTE Administration Azathioprine 50 mg 09/13/19 09:00 09/15/19 08:53 Imuran PO 50 mg DAILY ANNETTE Administration Furosemide 20 mg 09/13/19 09:00 09/15/19 08:53 Lasix PO 20 mg DAILY ANNETTE Administration Guaifenesin/Dextromethorphan 15 ml 09/11/19 22:02 09/15/19 14:17 Robitussin Dm PO 15 ml Q4H PRN Administration Cough Sodium Chloride 1,000 mls @ 75 mls/hr 09/11/19 19:00 09/15/19 20:49 Normal Saline 0.9% IV 1,000 mls .[id number] ANNETTE Administration Levofloxacin 500 mg/ Device 100 mls @ 100 mls/hr 09/12/19 09:00 09/15/19 08: 54 IVPB 100 mls Q24HR ANNETTE Administration Levothyroxine Sodium 100 mcg 09/13/19 06:00 09/15/19 05:09 Synthroid PO 100 mcg 0600 ANNETTE Administration Metoprolol Succinate 12.5 mg 09/13/19 09:00 09/15/19 08:53 Toprol Xl PO 12.5 mg DAILY ANNETTE Administration Pantoprazole Sodium 40 mg 09/13/19 09:00 09/15/19 08:53 Protonix PO 40 mg DAILY ANNETTE Administration Sodium Chloride 10 ml 09/14/19 21:00 09/15/19 08:54 Flush - Normal Saline IVF Not Given Q12HR ANNETTE - Exam General Appearance: NAD, awake alert Eye: PERRL, anicteric sclera ENT: normocephalic atraumatic, no oropharyngeal lesions Neck: supple, no JVD Heart: RRR, no murmur, no gallops, no rubs Respiratory - other findings: upper lobe rales, lower lobes are clear Gastrointestinal: soft, non-tender, non-distended, normal bowel sounds Extremities: no cyanosis, no clubbing, no edema Skin: normal turgor, no lesions, no rashes Neurological: cranial nerve grossly intact, normal sensation to touch, no weakness, no focal deficits Musculoskeletal: normal tone, normal strength, no muscle wasting Psychiatric: normal affect, normal behavior, A&O x 3, oriented to person, oriented to place Hosp A/P - Plan CT chesT: chronic interstitial opacity with new ground glass opacity. Possible superimposed infectious pneumonitis This is an 84 year old female with past medical history of sjogren syndrome and autoimmune hepatitis presenting with pneumonia Acute hypoxic respiratory failure secondary to pneumonia - she is on IV levaquin, she spiked temperature to 100.5. Currently down to room air - WBC is downtrending. I will add aztreonam for gram negative coverage - try to send sputum culture - COVID test negative, repeat test pending - repeat ALANNA screen, C3 and C4 are normal - PCP pneumonia possibility given on immunosuppressants? Defer to Dr. Parks on this Hyponatremia - sodium 131 - I will stop lasix given persistent fever Hypertension - continue metoprolol Hypothyroidism - continue levothyroxine DIspo: could possibly d/c if lungs sound better in am and COVId test negative
[2019-09-15] MEDS ORDERED: AZTREONAM IVPB SCH (22:29)
[2019-09-15] MEDS ORDERED: Enoxaparin Sodium 40 MG/0.4 ML SYRINGE SC SCH (22:32)
[2019-09-16] MEDS: Aztreonam 2 GM in Sodium Chloride 0.9% 100 ML IVPB SCH ×3 (00:16→16:23)
[2019-09-16] MEDS: Levothyroxine Sodium 100 MCG TAB PO SCH (03:42)
[2019-09-16] MEDS: Guaifenesin DM 100-10/5 ML UDCUP PO PRN ×2 (03:42→21:21)
[2019-09-16] MEDS: Sodium Chloride 0.9% 1,000 ML IV SCH (08:42)
[2019-09-16] MEDS: azaTHIOprine 50 MG TAB PO SCH (08:47)
--- NOTE | 2019-09-16 18:56 | PRG ---
DATE OF SERVICE: 09/16/2019 SUBJECTIVE: Feeling better, less cough, better appetite. No diarrhea. No abdominal pain. No chest pain. Fever has resolved. OBJECTIVE: VITAL SIGNS: Other vital signs are normal. O2 saturations are 95% to 96% on room air. GENERAL: Awake, alert, oriented, looking more comfortable. HEENT: Ocular movements conjugate. LUNGS: Bibasilar inspiratory crackles. HEART: S1 and S2, regular rate. ABDOMEN: Soft, not distended. NEUROLOGIC: Nonfocal. LABORATORY DATA: The only new results include CRP of 20.69 and that is about it. The Fungitell assay was negative, less than 31. ASSESSMENT AND DISCUSSION: Sjogren syndrome and autoimmune hepatitis, on Imuran with community-acquired pneumonia. COVID being ruled out second time and she is on levofloxacin, Azactam. Discontinue Azactam. May be discharged tomorrow. If the second coverage is negative, we still could consider doing serology test in the outpatient setting for retrospective diagnostic purposes. Other elements of her opportunistic pathogen workup are still pending at this time, but she is clearly improving, maybe the levofloxacin did the trick. Job ID: [id number]
--- NOTE | 2019-09-16 18:59 | PDOC.HOSPP ---
- Subjective Encounter Date: 09/16/19 Encounter Time: 15:00 Subjective: The patient is doing better. She states her cough has improved. She has some trouble taking a deep breath in. She is not using incentive spirometer. She does not recall having a liver biopsy in the past, does not recall taking azathioprine at home for Sjogren's disease SHe lives at home and takes care of her medication herself, does admit to some memory problems, but states that is common at my age - Objective Vital Signs & Weight: Vital Signs (12 hours) Temp Pulse Resp BP BP Pulse Ox 09/16/19 16:31 97.6 F 85 18 146/78 H 95 09/16/19 12:29 97.9 F 77 18 134/73 94 L 09/16/19 08:52 97.1 F L 95 18 133/76 96 Weight Weight 152 lb 4.8 oz I&O: 09/15/19 09/16/19 09/17/19 06:59 06:59 06:59 Intake Total 2811 2615 1700 Output Total 400 1500 Balance 2411 2615 200 Result Diagrams: 09/12/19 05:21 09/12/19 05:21 Hospitalist ROS - Review of Systems Constitutional: denies: fever, chills - Medication Medications: Active Medications Generic Name Dose Route Start Last Admin Trade Name Freq PRN Reason Stop Dose Admin Acetaminophen 650 mg 09/11/19 18:53 09/13/19 15:07 Tylenol PO 650 mg Q4H PRN Administration Headache/Fever/Mild Pain (1-3) Aspirin 81 mg 09/12/19 21:00 09/15/19 20:49 Ecotrin PO 81 mg HS ANNETTE Administration Atorvastatin Calcium 20 mg 09/12/19 21:00 09/15/19 20:49 Lipitor PO 20 mg HS ANNETTE Administration Azathioprine 50 mg 09/13/19 09:00 09/16/19 08:47 Imuran PO 50 mg DAILY ANNETTE Administration Guaifenesin/Dextromethorphan 15 ml 09/11/19 22:02 09/16/19 03:42 Robitussin Dm PO 15 ml Q4H PRN Administration Cough Sodium Chloride 1,000 mls @ 75 mls/hr 09/11/19 19:00 09/16/19 08:42 Normal Saline 0.9% IV 1,000 mls .[id number] ANNETTE Administration Levofloxacin 500 mg/ Device 100 mls @ 100 mls/hr 09/12/19 09:00 09/16/19 10: 03 IVPB 100 mls Q24HR ANNETTE Administration Levothyroxine Sodium 100 mcg 09/13/19 06:00 09/16/19 03:42 Synthroid PO 100 mcg 0600 ANNETTE Administration Metoprolol Succinate 12.5 mg 09/13/19 09:00 09/16/19 08:47 Toprol Xl PO 12.5 mg DAILY ANNETTE Administration Pantoprazole Sodium 40 mg 09/13/19 09:00 09/16/19 08:47 Protonix PO 40 mg DAILY ANNETTE Administration Sodium Chloride 10 ml 09/14/19 21:00 09/16/19 10:03 Flush - Normal Saline IVF Not Given Q12HR ANNETTE - Exam General Appearance: NAD, awake alert Eye: PERRL, anicteric sclera ENT: normocephalic atraumatic, no oropharyngeal lesions Neck: no JVD Heart: RRR, no murmur, no gallops, no rubs Respiratory: CTAB Respiratory - other findings: crackles on left side Gastrointestinal: soft, non-tender, non-distended, normal bowel sounds, no splenomegaly Extremities: no cyanosis, no clubbing, no edema Skin: normal turgor, no lesions, no rashes Neurological: cranial nerve grossly intact, normal sensation to touch, no focal deficits, no new deficit Hosp A/P - Plan CT chesT: chronic interstitial opacity with new ground glass opacity. Possible superimposed infectious pneumonitis This is an 84 year old female with past medical history of sjogren syndrome and autoimmune hepatitis presenting with pneumonia Acute hypoxic respiratory failure secondary to pneumonia - she is on IV levaquin, aztreonam added yesterday, discontinue aztreonam - fungutelle is negative - COVID test negative, repeat test pending - repeat ALANNA screen, C3 and C4 are normal Hyponatremia - sodium 131. Repeat BMP Hypertension - continue metoprolol Hypothyroidism - continue levothyroxine DIspo: pending COVID test results
[2019-09-16 20:37] LABS: CMV DNA-PCR Test Negative (Negative)
[2019-09-16] MEDS ORDERED: Enoxaparin Sodium 40 MG/0.4 ML SYRINGE SC SCH (21:00)
[2019-09-16] MEDS: Aspirin 81 mg Enteric Coated Tablet PO SCH (21:21)
[2019-09-16] MEDS: Atorvastatin Calcium 20 MG TAB PO SCH (21:21)
[2019-09-17] MEDS: Sodium Chloride 0.9% 1,000 ML IV SCH (01:25)
[2019-09-17] MEDS: Levothyroxine Sodium 100 MCG TAB PO SCH (05:02)
[2019-09-17 06:05] LABS: Anion Gap 10 mmol/L (10-20); BUN (Urea Nitrogen) Less than 4 mg/dL (9.8-20.1); Calc. Creatinine Clearance 68 mL/min (70-130); Calcium 8.6 mg/dL (7.8-10.44); Carbon Dioxide 29 mmol/L (23-31); Chloride 102 mmol/L (98-107); Estimated GFR-MDRD 83; Glucose 103 mg/dL (83-110); Sodium 138 mmol/L (136-145)
[2019-09-17 06:08] LABS: Potassium 2.7 mmol/L (3.5-5.1)
[2019-09-17 06:26] LABS: Hemoglobin 11.8 g/dL (12.0-16.0); Mean Corpuscular HGB CONC 32.6 g/dL (32.0-36.0); Mean Corpuscular Hemoglobin 30.5 pg (27.0-31.0); Mean Corpuscular Volume 93.7 fL (78.0-98.0); Mean Platelet Volume 7.2 fL (7.4-10.4); Platelet Count 282 thou/uL (130-400); RBC Distribution Width 17.9 % (11.5-14.5); Red Blood Cell (RBC) Count 3.86 mill/uL (4.20-5.40)
[2019-09-17 06:34] LABS: Band 2 % (5-11); Eosinophils 8 % (0-10); Lymphocytes 26 % (21-51); MDiff Complete? YES; Monocytes 8 % (0-10); Neutrophil 55 % (42-75)
[2019-09-17] MEDS: Potassium Chloride 20 MEQ TAB PO SCH ×2 (08:50→12:16)
[2019-09-17] MEDS: azaTHIOprine 50 MG TAB PO SCH (08:51)
[2019-09-17] MEDS: Guaifenesin DM 100-10/5 ML UDCUP PO PRN (08:53)
--- NOTE | 2019-09-17 11:00 | RAD ---
CHEST 1 VIEW: Date: 09/17/2019 HISTORY: Cough. COMPARISON: 09/11/2019. FINDINGS: Worsening patchy ground-glass opacity and alveolar parenchymal changes bilaterally, including the rig ht lateral mid lung zone and the upper mid and lower left chest. Slight costophrenic angle blunting s uggesting small pleural effusions. Heart size is upper range of normal. IMPRESSION: Underlying chronic interstitial opacity changes with worsening bilateral ground-glass opacity and moustapha eolar parenchymal changes in both lungs in a patchy somewhat peripheral distribution. Possible small pleural effusions. Continue short-term follow-up. POS: [facility]
[2019-09-17] MEDS ORDERED: predniSONE 20 MG TAB PO SCH (13:00)
[2019-09-17] MEDS ORDERED: Furosemide 20 MG/2 ML VIAL SLOW IVP SCH (13:00)
--- NOTE | 2019-09-17 13:25 | PQF ---
CLINICAL DOCUMENTATION IMPROVEMENT CLARIFICATION FORM: ICD-10 Updated PLEASE DO AN ADDENDUM TO THE PROGRESS NOTE WITH ANY DOCUMENTATION UPDATES OR ADDITIONS AND CARRY THROUGH TO DC SUMMARY. THANK YOU. DATE: 09/17/2019 ATTN: Dr. Hicks Please exercise your independent, professional judgment in responding to the clarification form. Clinical indicators are provided on the bottom of this form for your review Please check appropriate box(es): [ X] Sepsis present on admission [ ] Sepsis NOT present on admission [ ] Unable to determine [ X ] Due to pneumonia [ ] Due to other: [ ] Localized infection without sepsis [ ] Other diagnosis [ ] Unable to determine For continuity of documentation, please document condition throughout progress notes and discharge summary. Thank You. CLINICAL INDICATORS - SIGNS / SYMPTOMS / LABS / RESULTS AND LOCATION IN MR H&P 09/10: VS: BP 114/71, Pulse 110, Resp. 20. O2 sat 94%. Peak HR 127, Peak temp. 99.8 LAB: White count 12.4. I/P: Possible community-acquired pneumonia. Atrial fibrillaiton with RVR 09/14 (Kurt) Acute hypoxic respiratory failure secondary to pneumonia. she spiked temp. to 100.5 WBC is downtrending Covid test negative, repeat test pending. RISKS: H&P 09/10: Age 84. PMH: Atrial fib, Sjogren's disease, CAD. autoimmune hepatitis. 09/13 (Ficklen) Pneumonia. Acute hypoxic resp. failure. TREATMENT: ID Consult 09/13 Order 09/14-09/15: Azactam 2 gm IV MAR: Order 09/10: Levaquin 500mg IV q 24 hr Thank you, Shanell (This form is maintained as a part of the permanent medical record) 2014 [employer]. All Rights Reserved Shanell Hooker RN, BSN [email or web address]
--- NOTE | 2019-09-17 13:41 | PQF ---
CLINICAL DOCUMENTATION IMPROVEMENT CLARIFICATION FORM: ICD-10 Updated PLEASE DO AN ADDENDUM TO THE PROGRESS NOTE WITH ANY DOCUMENTATION UPDATES OR ADDITIONS AND CARRY THROUGH TO DC SUMMARY. THANK YOU. DATE: 09/17/2019 ATTN: Dr. Hicks Please exercise your independent, professional judgment in responding to the clarification form. Clinical indicators are provided on the bottom of this form for your review Please check appropriate box(s): [ ] Aspiration Pneumonia [ ] Pneumonia secondary to (specify organism / underlying disease) [ ] Empirically treating Gram Negative Pneumonia [ ] Empirically treating Anaerobic Pneumonia [ X] Simple Pneumonia [ ] Pneumonia of unknown etiology [ ] Other diagnosis [ ] Unable to determine In addition, please specify: Present on Admission (POA): [ ] Yes [ ] No [ ] Unable to determine For continuity of documentation, please document condition throughout progress notes and discharge summary. Thank You. CLINICAL INDICATORS - SIGNS / SYMPTOMS / LABS / RESULTS AND LOCATION IN MR H&P 09/10: VS: BP 114/71, Pulse 110, Resp. 20. O2 sat 94%. Peak HR 127, Peak temp. 99.8 I/P: Possible community-acquired pneumonia. The pt has slightly elevated white count with a left shift, which would be suggestive of a possible bacterial pneumonia, which would be consistent with her symptoms of cough and SOB. 09/14 (Kurt) Acute hypoxic respiratory failure secondary to pneumonia. Covid test negative, repeat test pending. 09/15 (Charly) Sjogren syndrome and autoimmune hepatitis, on Imuran with community-acquired pneumonia. RISKS: H&P 09/10: Age 84. PMH: Atrial fib, Sjogren's disease, CAD. autoimmune hepatitis. 09/13 (Abnerklen) Pneumonia. Acute hypoxic resp. failure. TREATMENT: ID Consult 09/13 Order 09/14-09/15: Azactam 2 gm IV MAR: Order 09/10: Levaquin 500mg IV q 24 hr Thank you, Shanell (This form is maintained as a part of the permanent medical record) 2014 [employer]. All Rights Reserved Shanell Hooker RN, [email or web address]
[2019-09-17 14:00] LABS: Potassium 3.8 mmol/L (3.5-5.1)
--- NOTE | 2019-09-17 15:33 | PRG ---
DATE OF SERVICE: 09/17/2019 SUBJECTIVE: Feeling better still with some cough. No sputum production. No headaches. No chest pain. No abdominal pain. OBJECTIVE: VITAL SIGNS: Temperature max 98.9 yesterday. She has been afebrile since. BP 150/73. She is breathing 18 times a minute and an O2 saturations 93% to 94% on room air. GENERAL: Appears comfortable at rest. LUNGS: Still with inspiratory crackles and scattered areas of right and left lung zones. HEART: S1 and S2 regular rate. ABDOMEN: Soft, not distended. EXTREMITIES: Moves extremities equally. No edema. LABORATORY DATA: White cell count is down to 5000, hemoglobin 11.8, platelets 282. The total lymphocyte count is well above 1200. The autoimmune panel was negative. The CMV, DNA, PCR was negative. Fungitell was negative. Histoplasma antigen is pending. Repeat chest x-ray showed scattered pulmonary infiltrates. ASSESSMENT AND DISCUSSION: Sjogren's syndrome and autoimmune hepatitis on Imuran, community-acquired pneumonia versus an autoimmune syndrome. In view of the negative anti-DNA antibodies, autoimmune process is less likely, but not completely ruled out. COVID second test was negative that is much less likely, but I think we should keep her on precautions until she is discharged from the hospital. The only missing opportunistic pathogen in the workup is the histoplasma antigen, but that is certainly less likely in view of improvement on levofloxacin. The patient should be discharged on Levaquin for a few more days. Follow up in the outpatient setting. Job ID: [id number]
[2019-09-17 16:00] VITALS: BP 148/83; TEMP 97.7
--- NOTE | 2019-09-18 13:35 | DIS ---
DATE OF ADMISSION: 09/11/2019 DATE OF DISCHARGE: 09/17/2019 DISCHARGE DIAGNOSES: 1. Acute hypoxic respiratory failure, secondary to multifocal pneumonia. 2. Hyponatremia. 3. Hypertension. 4. Hypothyroidism. CONSULTATIONS: Dr. Russell Parks with Infectious Disease. PROCEDURES: None. BRIEF HISTORY OF PRESENT ILLNESS: This is an 84-year-old female with a past medical history of Sjogren disease who had presented to the [facility] with cough and malaise. She denied any fevers. She denied any travel history. The patient had a chest x-ray in the emergency room, which showed chronic interstitial disease with possible superimposed infectious pneumonitis. She was admitted for COVID rule out. HOSPITAL COURSE: Acute hypoxic respiratory failure possibly secondary to community-acquired pneumonia: The patient had blood cultures done that were negative. Her white blood cell count was 12.4 on admission. She was started on IV Levaquin. She did continue to spike a mild fever and was started on aztreonam as well due to penicillin allergy. This was eventually discontinued the following day. The patient required oxygen but was weaned down to room air. Due to her history of immunosuppression and questionable history of immunosuppression on azathioprine , she had a PCP fungitelle test done that was negative. She had 2 COVID tests done, which were negative. Repeat ALANNA screen, C3 and C4 were normal. Per Infectious Disease, she was advised to continue Levaquin for 4 more days. She was advised to wear a mask at home until she stops coughing and no longer has respiratory symptoms. She should follow up with her PCP and get a repeat chest x-ray in 6 weeks. Hyponatremia: The patient had a sodium of 131 on the 11th, which improved to 138 on the day of discharge. Hypokalemia: The patient had potassium of 2.7 on the 16th, which improved to 3.8 with supplementation. Anemia: The patient had a hemoglobin of 11.8 on the 16th. This could have been iatrogenic from blood draws since she was not anemic when she first came in. She can have a repeat CBC as an outpatient to have this followed up. DISCHARGE PHYSICAL EXAMINATION: VITAL SIGNS: Temperature 97.7, heart rate 79, respiratory rate 16, O2 saturation 95% on room air, and blood pressure 148/83. GENERAL: The patient is alert, awake, and oriented x3. CVS: Regular rate and rhythm with no murmurs, rubs, or gallops. LUNGS: Slightly diminished at the bases. ABDOMEN: Positive bowel sounds, soft, nontender, nondistended. EXTREMITIES: No edema. PERTINENT LABORATORY DATA: CBC 09/16: White count 5.0, hemoglobin 11.8, hematocrit 36.2, and platelet count 282. BMP 09/16: Potassium 2.7. Repeat potassium came back as 3.8. Rest of BMP unremarkable. CRP: 20.69. LFTs: AST 14, ALT 8, alkaline phosphatase 135. Immunology 09/13: ALANNA screen negative, rebz-xzogau-onxtkclg DNA negative. C3: 156 C4: 19.2. COVID PCR 09/13: Not detected. Urine histoplasma 09/13: Negative. Fungitell 09/13: Negative. CMV DNA: Negative. IMAGING STUDIES: Chest x-ray 09/10: Chronic interstitial opacity with new ground-glass opacity, suggestive of possible viral/interstitial pneumonitis. Chest x-ray 09/16: Worsening bilateral ground-glass opacity and alveolar parenchymal changes in both lungs. Possible small pleural effusions. DISCHARGE CONDITION: Stable. ACTIVITY: As tolerated. DIET: Heart healthy diet. DISCHARGE INSTRUCTIONS: The patient should follow up with her PCP in a week and have a repeat chest x-ray within a week since it was slightly worse on the day of discharge. However, clinically, the patient reported that she was feeling better. She should also take prednisone 40 mg and albuterol inhaler. She should take Levaquin for 4 more days. She should consider seeing a wagon driller for her Sjogren disease, considering that she is not taking any immunosuppression as an outpatient. DISCHARGE MEDICATIONS: New prescriptions: 1. Albuterol 2 puffs inhaled q.6 hours p.r.n. 2. Levaquin 750 mg p.o. daily. 3. Potassium 20 mEq p.o. daily. 4. Prednisone 40 mg q.a.m. Job ID: [id number] [facility]
--- NOTE | 2019-09-19 09:11 | EKG ---
Test Reason : Blood Pressure : / mmHG Vent. Rate : 101 BPM Atrial Rate : 357 BPM P-R Int : 000 ms QRS Dur : 080 ms QT Int : 348 ms P-R-T Axes : 000 012 -30 degrees QTc Int : 451 ms Atrial fibrillation with rapid ventricular response Septal infarct , age undetermined Abnormal ECG Confirmed by CULLEN MOE DO ([id number]), editorial director DEJAN ALFONSO ([id number]) on 09/19/2019 9:11:07 AM Referred By: Confirmed By:CULLEN MOE DO
== END 2019-09-17 18:10 | disposition home or self-care (01) | DRG 871 ==
LOC: ERS 13:20 → 2SW 16:27
PROVIDERS: ADMIT Internal Medicine; ATTEND Internal Medicine
PROC: 8E0ZXY6 Isolation (ICD-10-PCS; principal; 2019-09-11)
DX: A41.9 Sepsis, unspecified organism (principal); J18.9 Pneumonia, unspecified organism; J96.01 Acute respiratory failure with hypoxia; E87.1 Hypo-osmolality and hyponatremia; F32.2 Major depressive disorder, single episode, severe without psychotic features; E78.5 Hyperlipidemia, unspecified; E78.00 Pure hypercholesterolemia, unspecified; I48.91 Unspecified atrial fibrillation; E03.9 Hypothyroidism, unspecified; M35.00 Sjogren syndrome, unspecified; I25.10 Atherosclerotic heart disease of native coronary artery without angina pectoris; K75.4 Autoimmune hepatitis; D50.9 Iron deficiency anemia, unspecified; Z20.828 Contact with and (suspected) exposure to other viral communicable diseases; Z95.5 Presence of coronary angioplasty implant and graft; Z87.891 Personal history of nicotine dependence; Z88.0 Allergy status to penicillin; Z79.01 Long term (current) use of anticoagulants; Z79.82 Long term (current) use of aspirin; Z79.899 Other long term (current) drug therapy; I25.2 Old myocardial infarction
CPT/HCPCS: 36415; 71045; 80048; 80053; 82274; 82550; 82553; 83605; 84484; 85025; 85379; 86038; 86140; 86160; 86225; 86850; 86900; 86901; 87040; 87385; 87449; 87497; 87635; 93005; 96361; 96365; 96375; J0692; J1650; J1956; J3490; J7500; J7512; U0002

== ENCOUNTER 2021-06-27 21:14 | Emergency (ER) | payer MEDICARE, BC ==
[2021-06-27 23:12] LABS: Bilirubin Negative (Negative); Blood, Urine Negative (Negative); Clarity Clear (Clear); Glucose, Urine (Dipstick) Normal (Negative); Ketone, Urine Negative (Negative); Leukocyte Negative Leu/uL (Negative); Nitrite Negative (Negative); Protein, Urine (Dipstick) Negative (Neg-Trace); Specific Gravity, Urine 1.005 (1.002-1.036); Urobilinogen Normal mg/dL (Less than 2); pH, Urine 6.5 (5.0-9.0)
[2021-06-27 23:13] LABS: #Eosinphils 0.5 thou/uL (0.0-0.7); #Lymphocytes 1.4 thou/uL (1.20-3.40); #Monocytes 0.5 thou/uL (0.11-0.59); #Neutrophils 4.3 thou/uL (1.40-6.50); %Basophils 0.5 % (0.0-1.0); %Eosinophils 7.9 % (0.0-10.0); %Lymphocytes 20.7 % (21.0-51.0); %Monocytes 7.9 % (0.0-10.0); %Neutrophils 62.9 % (42.0-75.0); Hemoglobin 15.1 g/dL (12.0-16.0); Mean Corpuscular HGB CONC 32.9 g/dL (32.0-36.0); Platelet Count 215 thou/uL (130-400); RBC Distribution Width 12.9 % (11.5-14.5); Red Blood Cell (RBC) Count 4.57 mill/uL (4.20-5.40); White Blood Cell (WBC) Count 6.8 thou/uL (4.8-10.8)
[2021-06-27 23:33] LABS: ALT (SGPT) 114 U/L (8-55); AST (SGOT) 149 U/L (5-34); Albumin 3.5 g/dL (3.4-4.8); Alkaline Phosphatase 225 U/L (40-110); Anion Gap 12 mmol/L (10-20); BUN (Urea Nitrogen) 10 mg/dL (9.8-20.1); Bilirubin, Total 1.1 mg/dL (0.2-1.2); Calc. Creatinine Clearance 0 mL/min (70-130); Calcium 9.5 mg/dL (7.8-10.44); Carbon Dioxide 27 mmol/L (23-31); Chloride 99 mmol/L (98-107); Globulin 6.1 g/dL (2.4-3.5); Glucose 119 mg/dL (83-110); Lipase 46 U/L (8-78); Potassium 3.9 mmol/L (3.5-5.1); Protein, Total 9.6 g/dL (5.8-8.1); Sodium 134 mmol/L (136-145)
== END 2021-06-28 00:30 | disposition home or self-care (01) ==
LOC: ERS 21:14
DX: R74.01 Elevation of levels of liver transaminase levels (principal); R41.89 Other symptoms and signs involving cognitive functions and awareness; E78.5 Hyperlipidemia, unspecified; E03.9 Hypothyroidism, unspecified; I48.91 Unspecified atrial fibrillation; Z87.891 Personal history of nicotine dependence; Z79.899 Other long term (current) drug therapy; Z79.82 Long term (current) use of aspirin
CPT/HCPCS: 80053; 81003; 83690; 84443; 84484; 85025; 87086; 93005

== ENCOUNTER 2021-09-07 10:42 | Outpatient (CLI) | payer MEDICARE, BC | END 2021-09-07 10:43 | disposition home or self-care (01) | LOC: BICULT 10:42 | PROVIDERS: ATTEND Family Medicine | DX: K75.4 Autoimmune hepatitis (principal); R63.4 Abnormal weight loss; J84.9 Interstitial pulmonary disease, unspecified; K82.0 Obstruction of gallbladder; R93.2 Abnormal findings on diagnostic imaging of liver and biliary tract | CPT/HCPCS: 71046; 76705 ==

== ENCOUNTER 2022-07-03 13:36 | Observation (INO) | payer MEDICARE, BC ==
[~2022-07-03 13:36] MED LIST: Iopamidol-370 76% 500 ML 1 ML ONE
[2022-07-03] MEDS ORDERED: Aspirin Chewable 81 MG TAB ONE (14:23)
[2022-07-03 14:51] LABS: #Eosinphils 0.3 thou/uL (0.0-0.7); #Lymphocytes 1.1 thou/uL (1.20-3.40); #Monocytes 0.5 thou/uL (0.11-0.59); #Neutrophils 3.9 thou/uL (1.40-6.50); %Basophils 0.6 % (0.0-1.0); %Eosinophils 5.9 % (0.0-10.0); %Lymphocytes 18.6 % (21.0-51.0); %Monocytes 8.9 % (0.0-10.0); %Neutrophils 66.1 % (42.0-75.0); Hemoglobin 14.9 g/dL (12.0-16.0); Mean Corpuscular Hemoglobin 33.7 pg (27.0-31.0); Mean Platelet Volume 6.5 fL (7.4-10.4); Platelet Count 215 10x3/uL (130-400); RBC Distribution Width 11.3 % (11.5-14.5); Red Blood Cell (RBC) Count 4.42 mill/uL (4.20-5.40); White Blood Cell (WBC) Count 5.9 10x3/uL (4.8-10.8)
[2022-07-03 15:13] LABS: ALT (SGPT) 10 U/L (8-55); AST (SGOT) 22 U/L (5-34); Albumin 3.5 g/dL (3.4-4.8); Alkaline Phosphatase 92 U/L (40-110); Anion Gap 16 mmol/L (10-20); BUN (Urea Nitrogen) 9 mg/dL (9.8-20.1); Bilirubin, Total 0.9 mg/dL (0.2-1.2); CK (CPK) 49 U/L (29-168); Calc. Creatinine Clearance 0 mL/min (70-130); Calcium 9.3 mg/dL (7.8-10.44); Carbon Dioxide 24 mmol/L (23-31); Chloride 100 mmol/L (98-107); Estimated GFR 73; Glucose 92 mg/dL (83-110); Magnesium 1.8 mg/dL (1.6-2.6); Potassium 3.5 mmol/L (3.5-5.1); Protein, Total 7.5 g/dL (5.8-8.1); Sodium 136 mmol/L (136-145)
[2022-07-03] MEDS ORDERED: cefTRIAXone\\ROCEPHIN 2 GM VIAL ONE (17:36)
[2022-07-03] MEDS ORDERED: Azithromycin 500 MG VIAL ONE (17:36)
[2022-07-03] MEDS ORDERED: Acetaminophen 325 MG TAB PO PRN (17:38)
[2022-07-03] MEDS ORDERED: Acetaminophen 500 MG TAB PO PRN (18:00)
[2022-07-03 20:16] LABS: SARS-CoV-2 NAA Rapid Test Not Detected (NotDetected)
[2022-07-03 20:21] VITALS: BMI 21.2
[2022-07-04] MEDS ORDERED: Levothyroxine 150 MCG TAB PO SCH (06:00)
[2022-07-04 08:50] LABS: #Basophils 0.1 thou/uL (0.0-0.2); #Eosinphils 0.5 thou/uL (0.0-0.7); #Lymphocytes 1.6 thou/uL (1.20-3.40); #Monocytes 0.5 thou/uL (0.11-0.59); %Basophils 1.1 % (0.0-1.0); %Lymphocytes 34.2 % (21.0-51.0); %Monocytes 11.3 % (0.0-10.0); %Neutrophils 43.4 % (42.0-75.0); Hemoglobin 13.4 g/dL (12.0-16.0); Mean Corpuscular HGB CONC 34.2 g/dL (32.0-36.0); Mean Corpuscular Volume 99.4 fl (78.0-98.0); Mean Platelet Volume 7.1 fL (7.4-10.4); Platelet Count 213 10x3/uL (130-400); RBC Distribution Width 11.3 % (11.5-14.5); Red Blood Cell (RBC) Count 3.96 mill/uL (4.20-5.40); White Blood Cell (WBC) Count 4.6 10x3/uL (4.8-10.8)
[2022-07-04] MEDS ORDERED: Azithromycin 250 MG TAB PO SCH (09:00)
[2022-07-04] MEDS ORDERED: azaTHIOprine 50 MG TAB PO SCH (09:00)
[2022-07-04 09:06] LABS: Anion Gap 11 mmol/L (10-20); BUN (Urea Nitrogen) 12 mg/dL (9.8-20.1); Calc. Creatinine Clearance 49 mL/min (70-130); Calcium 8.9 mg/dL (7.8-10.44); Carbon Dioxide 25 mmol/L (23-31); Chloride 103 mmol/L (98-107); Estimated GFR 77; Glucose 110 mg/dL (83-110); Potassium 3.4 mmol/L (3.5-5.1); Sodium 136 mmol/L (136-145)
[2022-07-04 12:03] VITALS: TEMP 97.6
[2022-07-04 12:07] VITALS: BP 116/57
[2022-07-04] MEDS ORDERED: cefTRIAXone\\ROCEPHIN 1 GM in Sodium Chloride 0.9% 100 ML IVPB SCH (18:00)
== END 2022-07-04 17:10 | disposition home or self-care (01) ==
LOC: ERS 13:36 → T4-B 19:58
PROVIDERS: ADMIT Hospitalist; ATTEND Hospitalist
DX: J18.9 Pneumonia, unspecified organism (principal); K75.4 Autoimmune hepatitis; I48.91 Unspecified atrial fibrillation; M35.00 Sjogren syndrome, unspecified; I25.10 Atherosclerotic heart disease of native coronary artery without angina pectoris; I25.2 Old myocardial infarction; E03.9 Hypothyroidism, unspecified; E78.5 Hyperlipidemia, unspecified; I51.7 Cardiomegaly; J84.10 Pulmonary fibrosis, unspecified; K80.20 Calculus of gallbladder without cholecystitis without obstruction; K44.9 Diaphragmatic hernia without obstruction or gangrene; Z87.891 Personal history of nicotine dependence; Z79.82 Long term (current) use of aspirin; Z79.890 Hormone replacement therapy; Z79.899 Other long term (current) drug therapy; Z88.0 Allergy status to penicillin; Z88.8 Allergy status to other drugs, medicaments and biological substances; Z91.018 Allergy to other foods; Z95.5 Presence of coronary angioplasty implant and graft; Z20.822 Contact with and (suspected) exposure to COVID-19
CPT/HCPCS: 71045; 71275; 80048; 80053; 82550; 83735; 83880; 84484; 85025 ×2; 85379; 87040; 93005; 96372; G0378 ×3; J0456; U0002; 36415; J0696; J1650; J7500; Q9967

== ENCOUNTER 2022-07-26 14:27 | Outpatient (CLI) | payer MEDICARE, BC | END 2022-07-26 14:28 | disposition home or self-care (01) | LOC: BICRAD 14:27 | PROVIDERS: ATTEND Family Medicine | DX: J18.9 Pneumonia, unspecified organism (principal); J84.10 Pulmonary fibrosis, unspecified | CPT/HCPCS: 71046 ==

== ENCOUNTER 2022-10-06 07:36 | Inpatient (IN) | payer MEDICARE, BC ==
[2022-10-06] MEDS ORDERED: Ondansetron PF 4 MG/2 ML Vial ONE (08:23)
[2022-10-06] MEDS ORDERED: Morphine 4 MG/ML VIAL ONE (08:23)
[2022-10-06 08:48] LABS: #Monocytes 0.8 thou/uL (0.11-0.59); #Neutrophils 7.9 thou/uL (1.40-6.50); %Basophils 0.1 % (0.0-1.0); %Eosinophils 0.2 % (0.0-10.0); %Lymphocytes 10.7 % (21.0-51.0); %Monocytes 7.9 % (0.0-10.0); %Neutrophils 81.1 % (42.0-75.0); Hemoglobin 16.1 g/dL (12.0-16.0); Mean Corpuscular HGB CONC 35.8 g/dL (32.0-36.0); Mean Corpuscular Hemoglobin 34.2 pg (27.0-31.0); Mean Corpuscular Volume 95.6 fl (78.0-98.0); Mean Platelet Volume 7.2 fL (7.4-10.4); Platelet Count 191 10x3/uL (130-400); RBC Distribution Width 12.2 % (11.5-14.5); White Blood Cell (WBC) Count 9.7 10x3/uL (4.8-10.8)
[2022-10-06 08:55] LABS: ALT (SGPT) 7 U/L (8-55); AST (SGOT) 25 U/L (5-34); Alkaline Phosphatase 102 U/L (40-110); Anion Gap 15 mmol/L (10-20); BUN (Urea Nitrogen) 11 mg/dL (9.8-20.1); Bilirubin, Total 1.1 mg/dL (0.2-1.2); Calc. Creatinine Clearance 0 mL/min (70-130); Calcium 9.3 mg/dL (7.8-10.44); Carbon Dioxide 25 mmol/L (23-31); Chloride 85 mmol/L (98-107); Estimated GFR 67; Globulin 4.3 g/dL (2.4-3.5); Glucose 137 mg/dL (83-110); Lipase 14 U/L (8-78); Potassium 2.9 mmol/L (3.5-5.1); Protein, Total 8.3 g/dL (5.8-8.1); Sodium 122 mmol/L (136-145)
[2022-10-06 08:59] LABS: Troponin I Less than 0.010 ng/mL (< 0.028)
[2022-10-06] MEDS ORDERED: Magnesium 2 GM/50 ML BAG (IN WATER) ONE (09:57)
[2022-10-06 10:06] LABS: Bilirubin Negative (Negative); Blood, Urine Negative (Negative); Clarity Clear (Clear); Glucose, Urine (Dipstick) Normal (Negative); Ketone, Urine 20 mg/dL (Negative); Leukocyte Negative Leu/uL (Negative); Nitrite Negative (Negative); Protein, Urine (Dipstick) Negative (Neg-Trace); Specific Gravity, Urine 1.008 (1.002-1.036); Urobilinogen Normal mg/dL (Less than 2); pH, Urine 6.5 (5.0-9.0)
[2022-10-06] MEDS ORDERED: Potassium Chloride 20 MEQ TAB ONE (12:07)
[2022-10-06] MEDS ORDERED: Iopamidol 370 76% 100 ML VIAL ONE (12:12)
[2022-10-06] MEDS ORDERED: Electrolyte Replacement Protocol FS SCH (12:45)
[2022-10-06 13:04] LABS: Phosphorus 2.4 mg/dL (2.3-4.7)
[2022-10-06] MEDS ORDERED: Ondansetron ODT 4 MG TAB PO PRN (13:28)
[2022-10-06] MEDS ORDERED: Bisacodyl 10 MG SUPP PR PRN (13:31)
[2022-10-06] MEDS: 1/2 NS w/KCL 20 mEq 1,000 ML IV SCH (14:42)
[2022-10-06 16:57] LABS: Anion Gap 14 mmol/L (10-20); BUN (Urea Nitrogen) 12 mg/dL (9.8-20.1); Calc. Creatinine Clearance 49 mL/min (70-130); Calcium 8.5 mg/dL (7.8-10.44); Carbon Dioxide 24 mmol/L (23-31); Chloride 89 mmol/L (98-107); Estimated GFR 75; Glucose 126 mg/dL (83-110); Potassium 2.7 mmol/L (3.5-5.1); Sodium 124 mmol/L (136-145)
[2022-10-06] MEDS ORDERED: Potassium Phosphate 30 MMOL in Sodium Chloride 0.9% 250 ML 250 ML IVPB SCH (17:15)
[2022-10-06] MEDS: Polyethylene Glycol 3350 17 GM Packet PO SCH (20:18)
[2022-10-06] MEDS: Ondansetron PF 4 MG/2 ML Vial IVP PRN (20:18)
[2022-10-06] MEDS: Senokot S 8.6-50 MG TAB PO SCH (20:18)
[2022-10-06] MEDS: Bisacodyl 10 MG SUPP PR SCH (20:18)
[2022-10-06] MEDS: Acetaminophen 325 MG TAB PO PRN (21:12)
[2022-10-06] MEDS ORDERED: Potassium Chloride 20 MEQ in Premix Bag 1 BAG IVPB SCH (22:00)
[2022-10-06 22:48] LABS: Anion Gap 19 mmol/L (10-20); BUN (Urea Nitrogen) 11 mg/dL (9.8-20.1); Calc. Creatinine Clearance 51 mL/min (70-130); Calcium 8.5 mg/dL (7.8-10.44); Carbon Dioxide 15 mmol/L (23-31); Chloride 93 mmol/L (98-107); Estimated GFR 79; Glucose 161 mg/dL (83-110); Potassium 3.9 mmol/L (3.5-5.1); Sodium 123 mmol/L (136-145)
[2022-10-06] MEDS ORDERED: Potassium Chloride 40 MEQ in Sodium Chloride 0.9% 500 ML IVPB SCH (23:59)
[2022-10-07 04:17] LABS: #Lymphocytes 1.4 thou/uL (1.20-3.40); #Monocytes 0.9 thou/uL (0.11-0.59); #Neutrophils 7.9 thou/uL (1.40-6.50); %Eosinophils 0.3 % (0.0-10.0); %Lymphocytes 13.6 % (21.0-51.0); %Monocytes 8.8 % (0.0-10.0); %Neutrophils 77.4 % (42.0-75.0); Mean Corpuscular HGB CONC 33.7 g/dL (32.0-36.0); Mean Corpuscular Hemoglobin 32.7 pg (27.0-31.0); Mean Corpuscular Volume 97.3 fl (78.0-98.0); Mean Platelet Volume 7.2 fL (7.4-10.4); Platelet Count 196 10x3/uL (130-400); RBC Distribution Width 12.5 % (11.5-14.5); Red Blood Cell (RBC) Count 4.29 mill/uL (4.20-5.40); White Blood Cell (WBC) Count 10.2 10x3/uL (4.8-10.8)
[2022-10-07] MEDS: 1/2 NS w/KCL 20 mEq 1,000 ML IV SCH ×2 (04:17→09:30)
[2022-10-07 04:34] LABS: ALT (SGPT) 7 U/L (8-55); AST (SGOT) 17 U/L (5-34); Albumin 3.5 g/dL (3.4-4.8); Alkaline Phosphatase 85 U/L (40-110); Anion Gap 11 mmol/L (10-20); BUN (Urea Nitrogen) 11 mg/dL (9.8-20.1); Bilirubin, Total 0.6 mg/dL (0.2-1.2); Calc. Creatinine Clearance 56 mL/min (70-130); Calcium 8.4 mg/dL (7.8-10.44); Carbon Dioxide 22 mmol/L (23-31); Chloride 95 mmol/L (98-107); Estimated GFR 85; Globulin 3.3 g/dL (2.4-3.5); Glucose 109 mg/dL (83-110); Magnesium 2.1 mg/dL (1.6-2.6); Potassium 3.4 mmol/L (3.5-5.1); Protein, Total 6.8 g/dL (5.8-8.1); Sodium 125 mmol/L (136-145)
[2022-10-07 04:36] LABS: Phosphorus 3.4 mg/dL (2.3-4.7)
[2022-10-07] MEDS ORDERED: Levothyroxine 150 MCG TAB PO SCH ×2 (06:00→10:01)
[2022-10-07] MEDS: Polyethylene Glycol 3350 17 GM Packet PO SCH ×2 (07:30→20:47)
[2022-10-07] MEDS: azaTHIOprine 50 MG TAB PO SCH (07:30)
[2022-10-07] MEDS: Senokot S 8.6-50 MG TAB PO SCH ×2 (07:30→20:47)
[2022-10-07] MEDS ORDERED: Potassium Chloride 20 MEQ TAB PO SCH (09:15)
[2022-10-07] MEDS ORDERED: Levothyroxine Sodium 25 MCG TAB PO SCH (10:00)
[2022-10-07] MEDS: Ketorolac Tromethamine 30 MG/ML VIAL IVP PRN ×2 (10:25→17:25)
[2022-10-07] MEDS: NS 0.9% w/ 20 MEQ KCL 1,000 ML/1,000 ML BAG IV SCH ×2 (11:11→23:59)
[2022-10-07] MEDS ORDERED: Mineral Oil ENEMA PR SCH (12:00)
[2022-10-07] MEDS ORDERED: NEOSTIGMINE 3 MG/3 ML SYR 3 MG/3 ML SYRINGE IVP SCH (13:30)
[2022-10-07 15:05] LABS: Anion Gap 15 mmol/L (10-20); BUN (Urea Nitrogen) 11 mg/dL (9.8-20.1); Calc. Creatinine Clearance 50 mL/min (70-130); Calcium 8.9 mg/dL (7.8-10.44); Carbon Dioxide 19 mmol/L (23-31); Chloride 95 mmol/L (98-107); Estimated GFR 76; Glucose 120 mg/dL (83-110); Potassium 3.9 mmol/L (3.5-5.1); Sodium 125 mmol/L (136-145)
[2022-10-07] MEDS: Bisacodyl 10 MG SUPP PR SCH (20:48)
[2022-10-07] MEDS: Acetaminophen 325 MG TAB PO PRN (23:28)
[2022-10-08 04:37] LABS: Anion Gap 12 mmol/L (10-20); BUN (Urea Nitrogen) 11 mg/dL (9.8-20.1); Calc. Creatinine Clearance 47 mL/min (70-130); Calcium 8.7 mg/dL (7.8-10.44); Carbon Dioxide 24 mmol/L (23-31); Chloride 95 mmol/L (98-107); Estimated GFR 71; Glucose 148 mg/dL (83-110); Potassium 3.8 mmol/L (3.5-5.1); Sodium 127 mmol/L (136-145)
[2022-10-08 04:56] LABS: Free T4 (Free Thyroxine) 0.86 ng/dL (0.70-1.48)
[2022-10-08] MEDS: Levothyroxine 175 MCG TAB PO SCH (07:24)
[2022-10-08] MEDS ORDERED: Magnesium 2 GM/50 ML(in water) 2 GM in Premix Bag 1 BAG IVPB SCH (08:00)
[2022-10-08] MEDS: Polyethylene Glycol 3350 17 GM Packet PO SCH ×2 (08:07→20:00)
[2022-10-08] MEDS: Ondansetron PF 4 MG/2 ML Vial IVP PRN (08:07)
[2022-10-08] MEDS: azaTHIOprine 50 MG TAB PO SCH (08:08)
[2022-10-08] MEDS: Senokot S 8.6-50 MG TAB PO SCH ×2 (08:08→20:00)
[2022-10-08] MEDS: Ketorolac Tromethamine 30 MG/ML VIAL IVP PRN ×3 (09:15→23:46)
[2022-10-08] MEDS: Acetaminophen 325 MG TAB PO PRN ×2 (09:20→20:01)
[2022-10-08] MEDS ORDERED: Ipratropium/Albuterol 3 ML NEB NEB PRN (11:49)
[2022-10-08] MEDS ORDERED: Furosemide 20 MG/2 ML VIAL SLOW IVP SCH (12:00)
[2022-10-08] MEDS: NS 0.9% w/ 20 MEQ KCL 1,000 ML/1,000 ML BAG IV SCH (12:03)
[2022-10-08] MEDS: Bisacodyl 10 MG SUPP PR SCH (20:00)
[2022-10-08] MEDS ORDERED: Melatonin 3 MG TAB PO PRN (23:33)
[2022-10-09 04:30] LABS: %Basophils 0.3 % (0.0-1.0); %Neutrophils 84.4 % (42.0-75.0); Hemoglobin 15.4 g/dL (12.0-16.0); Mean Corpuscular HGB CONC 34.1 g/dL (32.0-36.0); Mean Corpuscular Hemoglobin 32.8 pg (27.0-31.0); Mean Corpuscular Volume 96.2 fl (78.0-98.0); Mean Platelet Volume 9.1 fL (7.4-10.4); Platelet Count 199 10x3/uL (130-400); RBC Distribution Width 13.7 % (11.5-14.5)
[2022-10-09] MEDS ORDERED: Furosemide 20 MG/2 ML VIAL SLOW IVP SCH (04:30)
[2022-10-09 04:44] LABS: Anion Gap 15 mmol/L (10-20); BUN (Urea Nitrogen) 17 mg/dL (9.8-20.1); Calc. Creatinine Clearance 39 mL/min (70-130); Calcium 9.1 mg/dL (7.8-10.44); Carbon Dioxide 17 mmol/L (23-31); Chloride 98 mmol/L (98-107); Estimated GFR 51; Glucose 122 mg/dL (83-110); Potassium 4.2 mmol/L (3.5-5.1); Sodium 126 mmol/L (136-145)
[2022-10-09] MEDS: Fleet Saline Enema 133 ML BOT PR SCH (04:57)
[2022-10-09] MEDS: Levothyroxine 175 MCG TAB PO SCH (05:07)
[2022-10-09] MEDS: azaTHIOprine 50 MG TAB PO SCH (08:59)
[2022-10-09] MEDS: Senokot S 8.6-50 MG TAB PO SCH ×2 (08:59→21:10)
[2022-10-09] MEDS: NS 0.9% w/ 20 MEQ KCL 1,000 ML/1,000 ML BAG IV SCH (08:59)
[2022-10-09] MEDS: Polyethylene Glycol 3350 17 GM Packet PO SCH (10:12)
[2022-10-09] MEDS: Ketorolac Tromethamine 30 MG/ML VIAL IVP PRN (15:03)
[2022-10-09] MEDS: Sodium Chloride 0.9% 1,000 ML IV SCH (15:04)
[2022-10-10] MEDS ORDERED: diphenhydrAMINE 50 MG/ML VIAL IVP SCH (02:15)
[2022-10-10 04:51] LABS: #Monocytes 0.8 thou/uL (0.11-0.59); #Neutrophils 5.2 thou/uL (1.40-6.50); %Eosinophils 0.2 % (0.0-10.0); %Lymphocytes 8.8 % (21.0-51.0); %Neutrophils 78.5 % (42.0-75.0); Hemoglobin 14.5 g/dL (12.0-16.0); Mean Corpuscular HGB CONC 33.3 g/dL (32.0-36.0); Mean Corpuscular Hemoglobin 32.6 pg (27.0-31.0); Mean Corpuscular Volume 97.8 fl (78.0-98.0); Mean Platelet Volume 9.4 fL (7.4-10.4); Platelet Count 198 10x3/uL (130-400); RBC Distribution Width 14.2 % (11.5-14.5); Red Blood Cell (RBC) Count 4.45 mill/uL (4.20-5.40); White Blood Cell (WBC) Count 6.6 10x3/uL (4.8-10.8)
[2022-10-10 05:11] LABS: Manual Diff?? YES
[2022-10-10 05:12] LABS: Anion Gap 15 mmol/L (10-20); BUN (Urea Nitrogen) 23 mg/dL (9.8-20.1); Calc. Creatinine Clearance 49 mL/min (70-130); Calcium 8.8 mg/dL (7.8-10.44); Carbon Dioxide 26 mmol/L (23-31); Chloride 93 mmol/L (98-107); Estimated GFR 68; Glucose 100 mg/dL (83-110); Potassium 3.8 mmol/L (3.5-5.1); Sodium 130 mmol/L (136-145)
[2022-10-10 05:42] LABS: Band 52 % (5-11); CellaVision Operator ID lab.abc; Lymphocytes 4 % (21-51); Monocytes 5 % (0-10); Neutrophil 40 % (42-75); Platelet Morphology Comment Platelets Normal; RBC Morphology Within Normal Limits; Smudge Cells 14.9 %; Total Cell Count 101
[2022-10-10] MEDS: Levothyroxine 175 MCG TAB PO SCH (06:27)
[2022-10-10] MEDS: azaTHIOprine 50 MG TAB PO SCH (10:04)
[2022-10-10] MEDS: Senokot S 8.6-50 MG TAB PO SCH (10:04)
[2022-10-10] MEDS: Sodium Chloride 0.9% 1,000 ML IV SCH ×2 (10:07→23:30)
[2022-10-10] MEDS ORDERED: MD-Gastroview 120 ML BOT ONE (10:37)
[2022-10-10] MEDS: Ketorolac Tromethamine 30 MG/ML VIAL IVP PRN (11:16)
[2022-10-10] MEDS ORDERED: Norepinephrine 4 MG/4 ML VIAL ONE (13:25)
[2022-10-10] MEDS ORDERED: Vasopressin 20 UNITS/ML VIAL ONE (13:25)
[2022-10-10] MEDS ORDERED: SUGAMMADEX SODIUM 200 MG/2 ML VIAL ONE (13:25)
[2022-10-10] MEDS ORDERED: fentaNYL PF 100 MCG/2 ML SYRINGE ONE (13:37)
[2022-10-10] MEDS ORDERED: Albumin 5% 500 ML ONE (13:45)
[2022-10-10] MEDS ORDERED: Dexamethasone 20 MG/5 ML VIAL ONE (14:00)
[2022-10-10] MEDS ORDERED: Ondansetron PF 4 MG/2 ML Vial ONE (14:00)
[2022-10-10] MEDS ORDERED: Succinylcholine Chloride 100 MG/5 ML SYRINGE FS ONE (14:00)
[2022-10-10] MEDS ORDERED: Rocuronium Bromide 10 MG/ML (10ML VIAL) ONE (14:00)
[2022-10-10] MEDS ORDERED: Bupivacaine/Epinephrine 0.25% 30 ML VIAL ONE (14:55)
[2022-10-10] MEDS ORDERED: Meropenem 2 GM in Sodium Chloride 0.9% 100 ML IVPB SCH (15:00)
[2022-10-10] MEDS ORDERED: Ondansetron HCl/PF 4 MG/2 ML Vial IVP PRN (15:48)
[2022-10-10] MEDS ORDERED: fentaNYL 50 mcg/mL 1 mL Vial ONE (15:52)
[2022-10-11] MEDS: Sodium Chloride 0.9% 1,000 ML IV SCH ×2 (02:19→08:31)
[2022-10-11 04:33] LABS: #Basophils 0.1 thou/uL (0.0-0.2); #Monocytes 0.6 thou/uL (0.11-0.59); #Neutrophils 5.8 thou/uL (1.40-6.50); %Basophils 0.7 % (0.0-1.0); %Lymphocytes 5.2 % (21.0-51.0); %Monocytes 8.8 % (0.0-10.0); %Neutrophils 84.9 % (42.0-75.0); Mean Corpuscular HGB CONC 33.1 g/dL (32.0-36.0); Mean Corpuscular Hemoglobin 32.3 pg (27.0-31.0); Mean Corpuscular Volume 97.6 fl (78.0-98.0); Platelet Count 220 10x3/uL (130-400); RBC Distribution Width 14.4 % (11.5-14.5); Red Blood Cell (RBC) Count 3.72 mill/uL (4.20-5.40); White Blood Cell (WBC) Count 6.8 10x3/uL (4.8-10.8)
[2022-10-11 04:42] LABS: Manual Diff?? YES
[2022-10-11 04:45] LABS: INR-International Normal Ratio 1.1; Prothrombin Time 14.6 sec (12.0-14.7)
[2022-10-11 05:00] LABS: Anion Gap 12 mmol/L (10-20); BUN (Urea Nitrogen) 19 mg/dL (9.8-20.1); Calc. Creatinine Clearance 51 mL/min (70-130); Calcium 8.4 mg/dL (7.8-10.44); Carbon Dioxide 31 mmol/L (23-31); Chloride 97 mmol/L (98-107); Estimated GFR 75; Glucose 129 mg/dL (83-110); Magnesium 2.3 mg/dL (1.6-2.6); Potassium 2.8 mmol/L (3.5-5.1); Sodium 137 mmol/L (136-145)
[2022-10-11 05:26] LABS: Band 21 % (5-11); CellaVision Operator ID lab.sh2; Dohle Bodies SLIGHT; Lymphocytes 4 % (21-51); Macrocytosis SLIGHT = 6-15 cells HPF (0-5); Monocytes 4 % (0-10); Neutrophil 71 % (42-75); Platelet Morphology Comment Platelets Normal; Polychromasia SLIGHT = 2-3 cells HPF (0-2); Total Cell Count 100
[2022-10-11] MEDS: Levothyroxine 175 MCG TAB PO SCH (05:41)
[2022-10-11] MEDS: Methylcellulose 500 MG TAB PO SCH ×2 (08:30→15:00)
[2022-10-11] MEDS: azaTHIOprine 50 MG TAB PO SCH (08:31)
[2022-10-11] MEDS: Potassium Chloride 20 MEQ TAB PO SCH ×2 (08:31→11:51)
[2022-10-11 14:22] VITALS: BMI 22.4
[2022-10-11] MEDS ORDERED: Simethicone Chewable 80 MG TAB PO PRN (14:22)
[2022-10-11] MEDS ORDERED: Simethicone Chewable 80 MG TAB PO SCH (14:30)
[2022-10-11] MEDS ORDERED: Ketorolac Tromethamine 30 MG/ML VIAL IVP SCH (14:30)
[2022-10-11] MEDS: Ketorolac Tromethamine 30 MG/ML VIAL IVP SCH (17:31)
[2022-10-12] MEDS: Ketorolac Tromethamine 30 MG/ML VIAL IVP SCH ×3 (00:32→12:26)
[2022-10-12 05:04] LABS: Anion Gap 11 mmol/L (10-20); BUN (Urea Nitrogen) 21 mg/dL (9.8-20.1); Calc. Creatinine Clearance 50 mL/min (70-130); Calcium 8.7 mg/dL (7.8-10.44); Carbon Dioxide 28 mmol/L (23-31); Chloride 97 mmol/L (98-107); Estimated GFR 74; Glucose 99 mg/dL (83-110); Potassium 3.6 mmol/L (3.5-5.1); Sodium 132 mmol/L (136-145)
[2022-10-12] MEDS: Levothyroxine 175 MCG TAB PO SCH (05:06)
[2022-10-12] MEDS ORDERED: Polyethylene Glycol 3350 17 GM Packet PO SCH (09:00)
[2022-10-12] MEDS: Methylcellulose 500 MG TAB PO SCH (11:04)
[2022-10-12] MEDS: azaTHIOprine 50 MG TAB PO SCH (11:05)
[2022-10-12 12:13] VITALS: BP 165/84; TEMP 97.8
== END 2022-10-12 15:13 | disposition home health service (06) | DRG 357 ==
LOC: ERS 07:36 → 2NO 11:20
PROVIDERS: ADMIT Internal Medicine; ATTEND Family Medicine
PROC: 0D9670Z Drainage of Stomach with Drainage Device, Via Natural or Artificial Opening (ICD-10-PCS; principal; 2022-10-09)
PROC: 0DJD8ZZ Inspection of Lower Intestinal Tract, Via Natural or Artificial Opening Endoscopic (ICD-10-PCS; 2022-10-09)
PROC: 0DJD0ZZ Inspection of Lower Intestinal Tract, Open Approach (ICD-10-PCS; 2022-10-10)
PROC: 3E033XZ Introduction of Vasopressor into Peripheral Vein, Percutaneous Approach (ICD-10-PCS; 2022-10-10)
PROC: 30233J1 Transfusion of Nonautologous Serum Albumin into Peripheral Vein, Percutaneous Approach (ICD-10-PCS; 2022-10-10)
DX: K52.9 Noninfective gastroenteritis and colitis, unspecified (principal); E87.1 Hypo-osmolality and hyponatremia; K63.3 Ulcer of intestine; K56.691 Other complete intestinal obstruction; I48.20 Chronic atrial fibrillation, unspecified; K59.81 Ogilvie syndrome; I25.10 Atherosclerotic heart disease of native coronary artery without angina pectoris; E03.9 Hypothyroidism, unspecified; E78.5 Hyperlipidemia, unspecified; M35.00 Sjogren syndrome, unspecified; K75.4 Autoimmune hepatitis; E87.6 Hypokalemia; K59.00 Constipation, unspecified; F03.90 Unspecified dementia, unspecified severity, without behavioral disturbance, psychotic disturbance, mood disturbance, and anxiety; Z98.890 Other specified postprocedural states; I25.2 Old myocardial infarction; Z95.5 Presence of coronary angioplasty implant and graft; Z88.0 Allergy status to penicillin; Z88.8 Allergy status to other drugs, medicaments and biological substances; Z79.890 Hormone replacement therapy; Z79.899 Other long term (current) drug therapy; Z90.89 Acquired absence of other organs; Z82.49 Family history of ischemic heart disease and other diseases of the circulatory system; Z83.3 Family history of diabetes mellitus
CPT/HCPCS: 36415; 71045; 74018; 74174; 74283; 80048; 80053; 81003; 83690; 83735; 83930; 83935; 84100; 84300; 84439; 84443; 84481; 84484; 85025; 85610; 93005; 96365; 96375; J1100; J1200; J1650; J1885; J1940; J2270; J2405; J3010; J3475; J3480; J7030; J7050; J7500; P9045; Q9963; Q9967